=== PATIENT | male | born 1955 | race Hispanic/Latino ===

== ENCOUNTER 2019-12-20 14:25 | Emergency (ER) | payer MEDICARE ==
[2019-12-20 14:34] VITALS: BP 166/87
[2019-12-20 15:11] LABS: Bilirubin,Urine NEG (Negative); Blood,Urine NEG (Negative); Color,Urine Yellow (Yellow); Protein,Urine <15 mg/dL mg/dL (Negative); Urobilinogen,Urine < 2.0 mg/dL (<2.0)
--- NOTE | 2019-12-20 16:59 | Ultrasound Report ---
ULTRASOUND SCROTUM INDICATION: left testicle pain/swelling. COMPARISON None available. FINDINGS: RIGHT TESTICLE: 3.6 x 1.8 x 2.4 cm. Normal echogenicity. Normal color flow. No solid or cystic lesion s. RIGHT EPIDIDYMIS: Subcentimeter right epididymal cysts measure up to 6 mm. No other significant abnor mality. LEFT TESTICLE: 3.4 x 1.8 x 2.4 cm. Normal echogenicity. Normal color flow. No solid or cystic lesions . LEFT EPIDIDYMIS: No significant abnormality. HYDROCELE: Small bilateral hydroceles. VARICOCELE: None seen. ADDITIONAL FINDINGS: There is a suspected left inguinal hernia containing fat. IMPRESSION: 1. Small hydroceles. 2. Suspected left inguinal hernia containing fat. If there is continued clinical concern, a CT of the pelvis with contrast would be helpful for further evaluation. 3. Additional findings as above. Signer Name: Clay Watt MD Signed: 12/20/2019 4:55 PM Workstation Name: [id number]
--- NOTE | 2019-12-20 17:00 | Emergency Department Report ---
HPI - General Chief Complaint: Urogenital-Male Time Seen by Provider: 12/20/19 16:18 - HPI HPI: Room 3 The patient is a 64-year-old male present with a chief complaint of left groin pain. The patient states he has had intermittent pain in the left groin for 1 month. Patient states he is noticed swelling intermittently in the left inguinal region but the swelling goes down whenever he lays down and rests. Patient states his last bowel movement occurred this morning. Patient denies nausea or vomiting or fever. Patient states he is not allergic to Tylenol ED Past Medical Hx - Past Medical History Previous Medical History?: Yes Hx Hypertension: Yes Hx CVA: Yes Hx Heart Attack/AMI: Yes (1981) Hx GERD: Yes Hx Liver Disease: Yes (HEPATITIS C-cured) Hx of Cancer: Yes (prostate cancer-no treatment) Hx Arthritis: Yes Hx Psychiatric Treatment: Yes (Bipolar, Anxiety,MANIC DEPRESSION) Hx Asthma: Yes Hx COPD: Yes Additional medical history: DRUG / ALCOHOL ABUSE. L shoulder dislocation; Bones spurs; Dermatitis;. HIATAL HERNIA. HPYLORI. memory loss. Chronic pain - Surgical History Past Surgical History?: Yes Hx Cholecystectomy: Yes Additional Surgical History: L big toe removed; Hernia removed - Family History Family history: no significant - Social History Smoking Status: Current Some Day Smoker Substance Use Type: Marijuana - Medications Home Medications: Home Medications Medication Instructions Recorded Confirmed Last Taken Type cloNIDine [Catapres] 0.1 mg PO BID 03/13/15 01/16/16 03/14/15 History Dextroamphetamine/Amphetamine 10 mg PO DAILY 01/11/16 01/16/16 Unknown History [Adderall 10 mg Tablet] Dextroamphetamine/Amphetamine 30 mg PO DAILY 01/11/16 01/16/16 Unknown History [Adderall] Duloxetine HCl [Cymbalta] 60 mg PO DAILY 01/11/16 01/16/16 Unknown History Gabapentin 300 mg PO TID 01/11/16 01/16/16 Unknown History clonazePAM [KlonoPIN] 1 mg PO TID 01/11/16 01/16/16 Unknown History diphenhydrAMINE [Benadryl CAP] 25 mg PO QHS PRN #20 capsule 01/11/16 01/16/16 Unknown Rx Lactulose [Cephulac] 20 gm PO Q8H 30 Days oral.liqd 01/17/16 Unknown Rx Sulfamethoxazole/Trimethoprim 1 each PO BID #14 tablet 01/25/16 Unknown Rx [Bactrim DS TAB] HYDROcodone/APAP 10-325 [[place] 1 each PO Q6HR PRN #15 tablet 05/01/16 Unknown Rx 10-325 mg TAB] traMADoL [Ultram 50 MG tab] 50 mg PO Q6HR PRN #30 tablet 05/07/16 Unknown Rx Albuterol Sulfate [Proventil Hfa] 6.7 gm IH QID #1 hfa.aer.ad 11/02/19 Unknown Rx Prednisone [predniSONE 10 mg 10 mg PO .TAPER #1 tab.ds.pk 11/02/19 Unknown Rx (6-Day Pack, 21 Tabs)] cephALEXin [Keflex] 500 mg PO TID 21 Days cap 11/02/19 Unknown Rx HYDROcodone/APAP 5-325 [[place] 1 each PO Q6HR PRN #10 tablet 12/20/19 Unknown Rx 5/325] ED Review of Systems ROS: Stated complaint: LOW BACK/SHOULDER PAIN Other details as noted in HPI Constitutional: denies: fever Respiratory: no symptoms reported Endocrine: no symptoms reported Genitourinary: other (Left groin pain) Physical Exam - Physical Exam Vital Signs: Vital Signs 12/20/19 14:29 Temperature 98.9 F Pulse Rate 114 H Respiratory 20 Rate Blood Pressure 166/87 O2 Sat by Pulse 95 Oximetry Physical Exam: GENERAL: The patient is well-developed well-nourished male lying on stretcher not appearing to be in acute distress. [] HEENT: Normocephalic. Atraumatic. Extraocular motions are intact. Patient has moist mucous membranes. NECK: Supple. Trachea midline CHEST/LUNGS: Clear to auscultation. There is no respiratory distress noted. HEART/CARDIOVASCULAR: Regular. There is no tachycardia. There is no gallop rub or murmur. ABDOMEN: Abdomen is soft, nontender. Patient has normal bowel sounds. There is no abdominal distention. SKIN: There is no rash. There is no edema. There is no diaphoresis. NEURO: The patient is awake, alert, and oriented. The patient is cooperative. The patient has normal speech MUSCULOSKELETAL: There is no evidence of acute injury. GENITOURINARY: No inguinal swelling appreciated. No scrotal edema appreciated. No testicular swelling appreciated. Evidence of left indirect hernia during digital exam when patient coughs ED Course Vital Signs 12/20/19 14:29 Temperature 98.9 F Pulse Rate 114 H Respiratory 20 Rate Blood Pressure 166/87 O2 Sat by Pulse 95 Oximetry ED Medical Decision Making - Lab Data Laboratory Tests 12/20/19 14:59 Urine Color Yellow Urine Turbidity Clear Urine pH 6.0 Ur Specific [place] 1.012 Urine Protein <15 mg/dl Urine Glucose (UA) Neg Urine Ketones Neg Urine Blood Neg Urine Nitrite Neg Urine Bilirubin Neg Urine Urobilinogen < 2.0 Ur Leukocyte Esterase Tr Urine WBC (Auto) 3.0 Urine RBC (Auto) 4.0 - Radiology Data Radiology results: report reviewed (Testicular ultrasound), image reviewed (Testicular ultrasound) [address] [address] Ultrasound Report Signed Patient: CHRISTIANO LIRIANO MR#: [id number] : 1955 Acct:[id number] Age/Sex: 64 / M ADM Date: 12/20/19 Loc: ED Attending Dr: Ordering Physician: ROMI ORR Date of Service: 12/20/19 Procedure(s): US testicular doppler comp Accession Number(s): [id number] cc: ROMI ORR ULTRASOUND SCROTUM INDICATION: left testicle pain/swelling. COMPARISON None available. FINDINGS: RIGHT TESTICLE: 3.6 x 1.8 x 2.4 cm. Normal echogenicity. Normal color flow. No solid or cystic lesions. RIGHT EPIDIDYMIS: Subcentimeter right epididymal cysts measure up to 6 mm. No other significant abnormality. LEFT TESTICLE: 3.4 x 1.8 x 2.4 cm. Normal echogenicity. Normal color flow. No solid or cystic lesions. LEFT EPIDIDYMIS: No significant abnormality. HYDROCELE: Small bilateral hydroceles. VARICOCELE: None seen. ADDITIONAL FINDINGS: There is a suspected left inguinal hernia containing fat. IMPRESSION: 1. Small hydroceles. 2. Suspected left inguinal hernia containing fat. If there is continued clinical concern, a CT of the pelvis with contrast would be helpful for further evaluation. 3. Additional findings as above. Signer Name: Clay Watt MD Signed: 12/20/2019 4:55 PM Workstation Name: [id number] Transcribed By: [place] Dictated By: Clay Watt MD Electronically Authenticated By: Clay Watt MD Signed Date/Time: 12/20/191654 DD/ 52 TD/TT: - Differential Diagnosis Inguinal hernia, UTI Critical care attestation.: If time is entered above; I have spent that time in minutes in the direct care of this critically ill patient, excluding procedure time. ED Disposition Clinical Impression: Left inguinal hernia Disposition: TO HOME OR SELFCARE Is pt being admited?: No Does the pt Need Aspirin: No Condition: Stable Instructions: Inguinal Hernia (ED) Additional Instructions: Return to the emergency department should you develop worsening symptoms, inability to tolerate food or liquids, high fever or any other concerns Prescriptions: HYDROcodone/APAP 5-325 [[place] 5/325] 1 each PO Q6HR PRN #10 tablet PRN Reason: Pain Referrals: HUA HALE DO [Staff Physician] - 3-5 Days (Dr. Hale is a general surgeon. Please follow-up with her for further evaluation of your hernia) Time of Disposition: 17:13
== END 2019-12-20 17:20 | disposition home or self-care (01) ==
LOC: ED 14:25
DX: K40.90 Unilateral inguinal hernia, without obstruction or gangrene, not specified as recurrent (principal); I25.2 Old myocardial infarction; I10 Essential (primary) hypertension; K21.9 Gastro-esophageal reflux disease without esophagitis; M19.91 Primary osteoarthritis, unspecified site; J44.9 Chronic obstructive pulmonary disease, unspecified; F31.9 Bipolar disorder, unspecified; F17.200 Nicotine dependence, unspecified, uncomplicated; F12.10 Cannabis abuse, uncomplicated; Z86.73 Personal history of transient ischemic attack (TIA), and cerebral infarction without residual deficits; Z90.49 Acquired absence of other specified parts of digestive tract; Z98.890 Other specified postprocedural states; Z79.899 Other long term (current) drug therapy; Z88.8 Allergy status to other drugs, medicaments and biological substances
CPT/HCPCS: 81001; 93975

== ENCOUNTER 2020-02-05 11:56 | Emergency (ER) | payer MEDICARE ==
--- NOTE | 2020-02-05 12:09 | Event Note ---
ED Screening Note Date of service: 02/05/20 Time: 12:08 ED Screening Note: States left nonreducible hernia Also complains of chronic left shoulder pain This initial assessment/diagnostic orders/clinical plan/treatment(s) is/are subject to change based on patients health status, clinical progression and re- assessment by fellow clinical providers in the ED. Further treatment and workup at subsequent clinical providers discretion. Patient/guardian urged not to elope from the ED as their condition may be serious if not clinically assessed and managed. Initial orders include: Labs
[2020-02-05 12:51] LABS: Basophils % (Auto) 0.6 % (0.0-1.8); Eosinophils # (Auto) 0.4 K/mm3 (0.0-0.4); Eosinophils % (Auto) 4.9 % (0.0-4.3); Hematocrit 44.9 % (35.5-45.6); Hemoglobin 15.2 gm/dl (11.8-15.2); Lymphocytes # (Auto) 1.7 K/mm3 (1.2-5.4); Lymphocytes % (Auto) 24.1 % (13.4-35.0); Mean Corpuscular HGB Conc 34 % (32-34); Mean Corpuscular Volume 91 fl (84-94); Monocytes # (Auto) 0.4 K/mm3 (0.0-0.8); Monocytes % (Auto) 6.2 % (0.0-7.3); Platelet Count 292 K/mm3 (140-440); Red Blood Count 4.94 M/mm3 (3.65-5.03); Red Cell Distribution Width 14.4 % (13.2-15.2)
[2020-02-05 13:06] LABS: Alanine Aminotransferase 83 units/L (7-56); Albumin 3.9 g/dL (3.9-5); BUN/Creatinine Ratio 13; Blood Urea Nitrogen 12 mg/dL (9-20); Calcium 8.9 mg/dL (8.4-10.2); Hemolysis Index 7
== END 2020-02-05 16:35 | disposition left against medical advice (07) ==
LOC: ED 11:56
DX: M25.512 Pain in left shoulder (principal); Z53.21 Procedure and treatment not carried out due to patient leaving prior to being seen by health care provider
CPT/HCPCS: 36415; 80053; 85025

== ENCOUNTER 2020-02-11 12:53 | Emergency (ER) | payer MEDICARE ==
[2020-02-11 13:06] VITALS: BP 147/84
--- NOTE | 2020-02-11 13:17 | Event Note ---
ED Screening Note Date of service: 02/11/20 Time: 13:16 ED Screening Note: This initial assessment/diagnostic orders/clinical plan/treatment(s) is/are subject to change based on patients health status, clinical progression and re- assessment by fellow clinical providers in the ED. Further treatment and workup at subsequent clinical providers discretion. Patient/guardian urged not to elope from the ED as their condition may be serious if not clinically assessed and managed. Initial orders include: cbc, cmp, lipase, urinalysis
[2020-02-11 13:54] LABS: Basophils # (Auto) 0.1 K/mm3 (0.0-0.1); Basophils % (Auto) 0.8 % (0.0-1.8); Eosinophils # (Auto) 0.2 K/mm3 (0.0-0.4); Eosinophils % (Auto) 3.2 % (0.0-4.3); Hematocrit 42.8 % (35.5-45.6); Hemoglobin 14.8 gm/dl (11.8-15.2); Lymphocytes # (Auto) 2.2 K/mm3 (1.2-5.4); Lymphocytes % (Auto) 28.9 % (13.4-35.0); Mean Corpuscular HGB Conc 35 % (32-34); Mean Corpuscular Volume 89 fl (84-94); Monocytes # (Auto) 0.6 K/mm3 (0.0-0.8); Monocytes % (Auto) 7.8 % (0.0-7.3); Platelet Count 263 K/mm3 (140-440); Red Cell Distribution Width 14.5 % (13.2-15.2)
--- NOTE | 2020-02-11 14:07 | XRay Report ---
LEFT SHOULDER 3 VIEWS INDICATION: pain. COMPARISON: None. IMPRESSION: Normal bone mineralization. Moderate osteoarthritic changes are identified at the glenoh umeral joint and acromioclavicular joint. No acute fracture or bone lesion is appreciated. Chronic h ealed fracture of the lateral humeral head is suspected, correlate with history. The soft tissues are unremarkable. Signer Name: Jaydon Concepcion Jr, MD Signed: 02/11/2020 2:03 PM Workstation Name: [id number]
[2020-02-11 14:11] LABS: Alanine Aminotransferase 22 units/L (7-56); Albumin 4.2 g/dL (3.9-5); BUN/Creatinine Ratio 14; Blood Urea Nitrogen 11 mg/dL (9-20); Calcium 9.1 mg/dL (8.4-10.2); Hemolysis Index 9
[2020-02-11 14:12] LABS: Bilirubin,Urine NEG (Negative); Blood,Urine NEG (Negative); Color,Urine Yellow (Yellow); Protein,Urine <15 mg/dL mg/dL (Negative); Urobilinogen,Urine < 2.0 mg/dL (<2.0)
[2020-02-11 14:16] LABS: Bilirubin,Direct < 0.2 mg/dL (0-0.2)
--- NOTE | 2020-02-11 15:20 | Ultrasound Report ---
ULTRASOUND SCROTUM INDICATION: Hernia. COMPARISON 12/20/2019. FINDINGS: RIGHT TESTICLE: 3.6 x 1.8 x 2.9 cm. Normal echogenicity. Normal color flow. No solid or cystic lesion s. RIGHT EPIDIDYMIS: Subcentimeter right epididymal cysts measure up to 9 mm. No other significant abnor mality. LEFT TESTICLE: 3.6 x 1.7 x 2.4 cm. Normal echogenicity. Normal color flow. No solid or cystic lesions . LEFT EPIDIDYMIS: No significant abnormality. HYDROCELE: Small bilateral hydroceles. VARICOCELE: None seen. ADDITIONAL FINDINGS: There is a suspected left inguinal hernia containing fat, unchanged in appearanc e from prior study. IMPRESSION: 1. Small bilateral hydroceles. 2. Stable appearance of probable fat-containing left inguinal hernia. 3. Additional findings as above. Signer Name: Alex George MD Signed: 02/11/2020 3:15 PM Workstation Name: [id number]
--- NOTE | 2020-02-11 16:34 | Emergency Department Report ---
HPI - General Chief Complaint: Abdominal Pain Time Seen by Provider: 02/11/20 16:00 - HPI HPI: This is a 65-year-old male who presents to the emergency department with multiple complaints that all appear to be some chronic issues. The patient complains of left shoulder pain and says that he has a history of a fracture and dislocation to that left shoulder. He previously was in rehabilitation for it but says that it did not work and "it has fused back together." He says that he has trouble lifting the left arm/shoulder up above his head. Secondly, the patient has a history of chronic back pains. He previously was being seen by an orthopedist/pain specialist, but "I fired him." He denies any problems with bowel or bladder, numbness or paresthesias, or any neurological deficits. Thirdly, the patient complains of a recurrent left inguinal hernia. He denies any new injuries, fall. He has a past medical history of arthritis, asthma, COPD, CVA without residual deficits, GERD, coronary artery disease, hypertension, previous hepatitis C, bipolar disorder. ED Past Medical Hx - Past Medical History Previous Medical History?: Yes Hx Hypertension: Yes Hx CVA: Yes Hx Heart Attack/AMI: Yes (1981) Hx GERD: Yes Hx Liver Disease: Yes (HEPATITIS C-cured) Hx Arthritis: Yes Hx Psychiatric Treatment: Yes (Bipolar, Anxiety,MANIC DEPRESSION) Hx Asthma: Yes Hx COPD: Yes Additional medical history: DRUG / ALCOHOL ABUSE. L shoulder dislocation; Bones spurs; Dermatitis;. HIATAL HERNIA. HPYLORI. memory loss. Chronic pain - Surgical History Past Surgical History?: Yes Hx Cholecystectomy: Yes Additional Surgical History: L big toe removed; Hernia removed - Social History Smoking Status: Current Every Day Smoker Substance Use Type: None - Medications Home Medications: Home Medications Medication Instructions Recorded Confirmed Last Taken Type cloNIDine [Catapres] 0.1 mg PO BID 03/13/15 01/16/16 03/14/15 History Dextroamphetamine/Amphetamine 10 mg PO DAILY 01/11/16 01/16/16 Unknown History [Adderall 10 mg Tablet] Dextroamphetamine/Amphetamine 30 mg PO DAILY 01/11/16 01/16/16 Unknown History [Adderall] Duloxetine HCl [Cymbalta] 60 mg PO DAILY 01/11/16 01/16/16 Unknown History Gabapentin 300 mg PO TID 01/11/16 01/16/16 Unknown History clonazePAM [KlonoPIN] 1 mg PO TID 01/11/16 01/16/16 Unknown History diphenhydrAMINE [Benadryl CAP] 25 mg PO QHS PRN #20 capsule 01/11/16 01/16/16 Unknown Rx Lactulose [Cephulac] 20 gm PO Q8H 30 Days oral.liqd 01/17/16 Unknown Rx Sulfamethoxazole/Trimethoprim 1 each PO BID #14 tablet 01/25/16 Unknown Rx [Bactrim DS TAB] traMADoL [Ultram 50 MG tab] 50 mg PO Q6HR PRN #30 tablet 05/07/16 Unknown Rx Albuterol Sulfate [Proventil Hfa] 6.7 gm IH QID #1 hfa.aer.ad 11/02/19 Unknown Rx Prednisone [predniSONE 10 mg 10 mg PO .TAPER #1 tab.ds.pk 11/02/19 Unknown Rx (6-Day Pack, 21 Tabs)] cephALEXin [Keflex] 500 mg PO TID 21 Days cap 11/02/19 Unknown Rx HYDROcodone/APAP 5-325 [[place] 1 each PO Q6HR PRN #10 tablet 12/20/19 Unknown Rx 5/325] HYDROcodone/APAP 10-325 [[place] 1 each PO Q6HR PRN #12 tablet 02/11/20 Unknown Rx 10-325 mg TAB] ED Review of Systems ROS: Stated complaint: LT SHOULDER PAINS Other details as noted in HPI Comment: All other systems reviewed and negative Constitutional: denies: chills, fever Eyes: denies: eye pain, vision change ENT: denies: ear pain, throat pain Respiratory: denies: cough, shortness of breath Cardiovascular: denies: chest pain, palpitations Gastrointestinal: denies: abdominal pain, vomiting Genitourinary: denies: dysuria, discharge Musculoskeletal: back pain (chronic), arthralgia (chronic left shoulder). denies: joint swelling Skin: denies: rash, lesions Neurological: denies: numbness, paresthesias Physical Exam - Physical Exam Vital Signs: Vital Signs 02/11/20 12:55 Temperature 97.5 F L Pulse Rate 97 H Respiratory 15 Rate Blood Pressure 147/84 O2 Sat by Pulse 96 Oximetry Physical Exam: GENERAL: The patient is well-developed well-nourished. HENT: Normocephalic. Atraumatic. Patient has moist mucous membranes. EYES: Extraocular motions are intact. NECK: Supple. Trachea is midline. Full range of motion. CHEST/LUNGS: Clear to auscultation. There is no respiratory distress noted. HEART/CARDIOVASCULAR: Regular. There is no tachycardia. There is no murmur. ABDOMEN: Abdomen is soft, nontender. Patient has normal bowel sounds. There is no abdominal distention. SKIN: Skin is warm and dry. NEURO: The patient is awake, alert, and oriented. The patient is cooperative. The patient has no focal neurologic deficits. Normal speech. MUSCULOSKELETAL: There is some tenderness to palpation to the left shoulder but no obvious deformity other than some restriction to full extension and abduction of the affected left upper extremity. Radial pulse +2/4 and capillary refill less than 2 seconds to the left upper extremity. BACK: There is no midline thoracic or lumbar tenderness to palpation. There is reproducible bilateral paraspinal tenderness to palpation to the lower thoracic and lumbar back. : There is a reducible left inguinal hernia. ED Course Vital Signs 02/11/20 12:55 Temperature 97.5 F L Pulse Rate 97 H Respiratory 15 Rate Blood Pressure 147/84 O2 Sat by Pulse 96 Oximetry ED Medical Decision Making - Lab Data Result diagrams: 02/11/20 13:15 02/11/20 13:15 - Radiology Data Radiology results: report reviewed ULTRASOUND SCROTUM INDICATION: Hernia. COMPARISON 12/20/2019. FINDINGS: RIGHT TESTICLE: 3.6 x 1.8 x 2.9 cm. Normal echogenicity. Normal color flow. No solid or cystic lesions. RIGHT EPIDIDYMIS: Subcentimeter right epididymal cysts measure up to 9 mm. No other significant abnormality. LEFT TESTICLE: 3.6 x 1.7 x 2.4 cm. Normal echogenicity. Normal color flow. No solid or cystic lesions. LEFT EPIDIDYMIS: No significant abnormality. HYDROCELE: Small bilateral hydroceles. VARICOCELE: None seen. ADDITIONAL FINDINGS: There is a suspected left inguinal hernia containing fat, unchanged in appearance from prior study. IMPRESSION: 1. Small bilateral hydroceles. 2. Stable appearance of probable fat-containing left inguinal hernia. 3. Additional findings as above. LEFT SHOULDER 3 VIEWS INDICATION: pain. COMPARISON: None. IMPRESSION: Normal bone mineralization. Moderate osteoarthritic changes are identified at the glenohumeral joint and acromioclavicular joint. No acute fracture or bone lesion is appreciated. Chronic healed fracture of the lateral humeral head is suspected, correlate with history. The soft tissues are unremarkable. - Medical Decision Making Regarding the patient's shoulder pain, an x-ray was done that does not show any fracture, dislocation, or any acute process. The patient himself says that this is a chronic pain. Given the restriction to full extension and abduction, the patient could have a rotator cuff injury but the patient says "it has fused." He is neurovascularly intact with good radial pulses and distal capillary refill. An x-ray was done that shows an old healed fracture of the humeral head but otherwise no acute processes. Regarding the patient's back pain, the patient once again says that this is a chronic issue. He has not had any fall or injury. There is no midline tenderness to palpation, and there is reproducible bilateral paraspinal tenderness to palpation. The patient is seen ambulatory throughout the emergency department. He denies any problems with bowel or bladder, numbness or paresthesias, or any neurological deficits. For all these reasons I did not feel that imaging of the thoracic or lumbar spine was necessary at this time. The patient has a reducible left inguinal hernia. An ultrasound was done through triage that shows small bilateral hydrocele and the hernia that is most likely containing only fat. The patient was given a very small amount of pain medication for what appears to be his chronic issues. However, the patient understands that he must find a pain management physician very soon. He has been given outpatient referrals for orthopedist and general surgery. He will return to the emergency department with any worsening of his symptoms or with any acute distress. Critical Care Time: No Critical care attestation.: If time is entered above; I have spent that time in minutes in the direct care of this critically ill patient, excluding procedure time. ED Disposition Clinical Impression: Bilateral hydrocele Chronic back pain Qualifiers: Back pain location: back pain in unspecified location Back pain laterality: bilateral Qualified Code(s): M54.9 - Dorsalgia, unspecified; G89.29 - Other chronic pain Left shoulder pain Qualifiers: Chronicity: chronic Qualified Code(s): M25.512 - Pain in left shoulder; G89.29 - Other chronic pain Inguinal hernia Qualifiers: Obstruction and gangrene presence: without obstruction or gangrene Laterality: unilateral Recurrence: recurrent Qualified Code(s): K40.91 - Unilateral inguinal hernia, without obstruction or gangrene, recurrent Disposition: TO HOME OR SELFCARE Is pt being admited?: No Condition: Stable Instructions: Shoulder Pain, Hernia, Adult, Musculoskeletal Pain, Chronic Back Pain Additional Instructions: Please follow-up with your primary care physician in the next few days. 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 I am giving you a referral for a local general surgeon, Dr. Hale, to follow-up regarding your inguinal hernia. Please return to the closest emergency department with any increased pain, inability to reduce the hernia (push it back in), abdominal distention, severe nausea with vomiting. I am giving you a referral for a local orthopedic group, [facility], to follow-up regarding your shoulder and back pains. You have been prescribed a medication that is sedating and therefore should not be taken prior to driving, working, and responsible for children and in no way should be mixed with alcohol of any quantity. Return to the emergency department with any worsening of your symptoms, new or concerning symptoms not addressed during this current emergency department visit, or with any acute distress. Prescriptions: HYDROcodone/APAP 10-325 [[place] 10-325 mg TAB] 1 each PO Q6HR PRN #12 tablet PRN Reason: Pain Referrals: [facility]QU[facility] [Other] - 3-5 Days HUA HALE DO [Staff Physician] - 3-5 Days [facility] [Provider Group] - 3-5 Days Time of Disposition: 16:37
== END 2020-02-11 16:41 | disposition home or self-care (01) ==
LOC: ED 12:53
DX: K40.90 Unilateral inguinal hernia, without obstruction or gangrene, not specified as recurrent (principal); N43.3 Hydrocele, unspecified; M25.512 Pain in left shoulder; M54.6 Pain in thoracic spine; G89.29 Other chronic pain; I25.2 Old myocardial infarction; I10 Essential (primary) hypertension; K21.9 Gastro-esophageal reflux disease without esophagitis; M19.91 Primary osteoarthritis, unspecified site; F31.9 Bipolar disorder, unspecified; F41.9 Anxiety disorder, unspecified; F17.200 Nicotine dependence, unspecified, uncomplicated; J44.9 Chronic obstructive pulmonary disease, unspecified; Z90.49 Acquired absence of other specified parts of digestive tract; Z98.890 Other specified postprocedural states; Z79.899 Other long term (current) drug therapy; Z88.8 Allergy status to other drugs, medicaments and biological substances
CPT/HCPCS: 36415; 80048; 80076; 81001; 83690; 85025; 93975

== ENCOUNTER 2020-02-14 13:28 | Emergency (ER) | payer MEDICARE ==
[2020-02-14 14:11] VITALS: BP 141/74
--- NOTE | 2020-02-14 14:25 | Emergency Department Report ---
Chief Complaint: Medical Clearance Stated Complaint: LT SHOULDER PAIN/BACK PAIN Time Seen by Provider: 02/14/20 14:22 - HPI History of Present Illness: Patient is a 65-year-old male presents emergency room with complaints of chronic pain. He states that he has chronic left shoulder pain and chronic back pain. He is ambulating without difficulty. He denies any fever, nausea, vomiting, diarrhea, urinary symptoms numbness, weakness, bowel or bladder incontinence, arm swelling, arm redness. He states he has pain with movement. He was evaluated in the emergency department on 02/11/2020 and had a x-ray performed of his left shoulder which showed Normal bone mineralization. Moderate osteoarthritic changes are identified at the glenohumeral joint and acromioclavicular joint. No acute fracture or bone lesion is appreciated. Chronic healed fracture of the lateral humeral head is suspected, correlate with history. The soft tissues are unremarkable. Patient's pain was treated in the emergency department at that time and he was given a prescription for 12 tablets of norco. He states he is already out of the pain pills and that is why he presents to the emergency room. He is not seeing a primary care doctor, orthopedic, spine doctor, or pain specialist. He states that he "fired all of his doctors." He has no acute complaints at this time. Vitals are stable On exam: Non toxic appearing, no acute distress atraumatic, normocephalic normal appearance of the eyes, EOMI, no periorbital edema or ecchymosis moist mucus membranes no respiratory distress, no accessory muscle use A&O x4, no focal neuro deficit, ambulating without difficulty and briskly skin is warm, dry, intact Patient is presenting for chronic pain He has been seen in the emergency department multiple times for this complaint He was just recently seen 02/11/2020 and underwent an x-ray with no acute process at that time He has had no trauma He has no acute complaints he presents due to running out of his [place] Advised patient that he would be referred to orthopedic and pain management clinics Advised patient that we could not give him any more narcotics and that we do not treat chronic pain in the emergency department He has no acute emergent complaint at this time Patient became angered and states that "he does not want referrals and that his discharge paperwork can be shredded up" he left without his discharge paperwork Medical screening examination performed and there is no threat to life or limb at this time - Exam Vital Signs: Vital Signs 02/14/20 14:07 Temperature 98 F Pulse Rate 91 H Respiratory 18 Rate Blood Pressure 141/74 O2 Sat by Pulse 95 Oximetry MSE screening note: Focused history and physical exam performed. ED Medical Decision Making - Radiology Data Radiology results: report reviewed Ordering Physician: ROMI SHEN Date of Service: 02/11/20 Procedure(s): XR shoulder 2+V LT Accession Number(s): [id number] cc: ROMI SHEN Fluoro Time In Minutes: LEFT SHOULDER 3 VIEWS INDICATION: pain. COMPARISON: None. IMPRESSION: Normal bone mineralization. Moderate osteoarthritic changes are identified at the glenohumeral joint and acromioclavicular joint. No acute fracture or bone lesion is appreciated. Chronic healed fracture of the lateral humeral head is suspected, correlate with history. The soft tissues are unremarkable. Signer Name: Jaydon Concepcion Jr, MD Signed: 02/11/2020 2:03 PM Workstation Name: [id number] Transcribed By: TTR Dictated By: JAYDON CONCEPCION JR, MD Electronically Authenticated By: JAYDON CONCEPCION JR, MD Signed Date/Time: 02/11/20 140 DD/ 140 TD/TT: ED Disposition for MSE Clinical Impression: Chronic pain Qualifiers: Chronic pain type: other chronic pain Qualified Code(s): G89.29 - Other chronic pain Disposition: Z-07 MED SCREENING EXAM-LEFT Is pt being admited?: No Does the pt Need Aspirin: No Condition: Stable Additional Instructions: Please follow-up with orthopedic doctor. Please follow-up with a pain specialist. Return to emergency room for any new or worsening symptoms. [facility] Pain management physician in [place], [place] Address: [address], [place] [address] Dr. Tony Ronquillo Pain management physician in [place] [address] [place] [address] Husam Malin MD Pain management physician in [place], [place] Address: [address], [place] [address] [facility] Pain control clinic in the [place], [place] Address: [address] [place] [address], [place] [address] Referrals: ALISON ALEGRE MD [Staff Physician] - 2-3 Days [facility] [Provider Group] - 2-3 Days Time of Disposition: 14:22 Print Language: ESTONIAN
== END 2020-02-14 15:00 | disposition left against medical advice (07) ==
LOC: ED 13:28
DX: M79.10 Myalgia, unspecified site (principal); Z76.0 Encounter for issue of repeat prescription; Z53.21 Procedure and treatment not carried out due to patient leaving prior to being seen by health care provider

== ENCOUNTER 2020-06-29 20:05 | Emergency (ER) | payer MEDICARE ==
[2020-06-29 22:56] VITALS: BP 125/58
[2020-06-30] MEDS ORDERED: ONDANSETRON 4 MG ODT TAB PO ONE (00:11)
[2020-06-30] MEDS ORDERED: DICYCLOMINE 20 MG TAB PO ONE (00:11)
[2020-06-30] MEDS ORDERED: FAMOTIDINE 20 MG TAB PO ONE (00:11)
--- NOTE | 2020-06-30 00:44 | XRay Report ---
CHEST 1 VIEW INDICATION: cough. COMPARISON: 11/01/2019 FINDINGS: Support devices: None. Heart: Normal. Lungs/Pleura: There is persistent elevation of the left hemidiaphragm. Scarring versus atelectasis is noted in the left lung base. Right lung is clear. No pleural abnormality. IMPRESSION: 1. No acute findings. Signer Name: Feliberto Almonte MD Signed: 06/30/2020 12:39 AM Workstation Name: [id number]
[2020-06-30 01:01] LABS: Basophils % (Auto) 0.4 % (0.0-1.8); Eosinophils # (Auto) 0.3 K/mm3 (0.0-0.4); Eosinophils % (Auto) 2.9 % (0.0-4.3); Hematocrit 44.3 % (35.5-45.6); Hemoglobin 15.2 gm/dl (11.8-15.2); Lymphocytes # (Auto) 2.4 K/mm3 (1.2-5.4); Lymphocytes % (Auto) 25.3 % (13.4-35.0); Mean Corpuscular HGB Conc 34 % (32-34); Mean Corpuscular Volume 95 fl (84-94); Monocytes # (Auto) 0.9 K/mm3 (0.0-0.8); Monocytes % (Auto) 9.3 % (0.0-7.3); Platelet Count 238 K/mm3 (140-440); Red Blood Count 4.65 M/mm3 (3.65-5.03); Red Cell Distribution Width 15.2 % (13.2-15.2)
[2020-06-30 01:15] LABS: Alanine Aminotransferase 18 units/L (7-56); Albumin 4.4 g/dL (3.9-5); BUN/Creatinine Ratio 14; Blood Urea Nitrogen 13 mg/dL (9-20); Calcium 9.1 mg/dL (8.4-10.2); Hemolysis Index 5
--- NOTE | 2020-06-30 02:40 | Emergency Department Report ---
ED General Adult HPI - General Chief complaint: GI Bleed Stated complaint: BLOOD IN STOOL;SHOULDER PAIN Time Seen by Provider: 06/30/20 02:25 Source: patient Mode of arrival: Ambulatory Limitations: No Limitations - History of Present Illness Initial comments: 65-year-old male presents to ED with complaint of chronic shoulder pain and rectal bleeding. Patient reports he has had 3 episodes of rectal bleeding today. Denies any nausea, vomiting, abdominal pain. Patient seems to be somewhat all over the place, reporting on all of his medical ailments. Stating that he has a history of gout; stating that he just got out of the hospital for heart attack; stating that he currently has prostate cancer. Patient is requesting pain medication for his shoulder and colonoscopy for his rectal bleeding. -: days(s) (1) Severity scale (0 -10): 5 Quality: aching Consistency: intermittent Improves with: none Worsens with: none Associated Symptoms: denies: nausea/vomiting - Related Data Home Medications Medication Instructions Recorded Confirmed Last Taken cloNIDine [Catapres] 0.1 mg PO BID 03/13/15 01/16/16 03/14/15 Dextroamphetamine/Amphetamine 10 mg PO DAILY 01/11/16 01/16/16 Unknown [Adderall 10 mg Tablet] Dextroamphetamine/Amphetamine 30 mg PO DAILY 01/11/16 01/16/16 Unknown [Adderall] Duloxetine HCl [Cymbalta] 60 mg PO DAILY 01/11/16 01/16/16 Unknown Gabapentin 300 mg PO TID 01/11/16 01/16/16 Unknown clonazePAM [KlonoPIN] 1 mg PO TID 01/11/16 01/16/16 Unknown Previous Rx's Medication Instructions Recorded Last Taken Type diphenhydrAMINE [Benadryl CAP] 25 mg PO QHS PRN #20 capsule 01/11/16 Unknown Rx Lactulose [Cephulac] 20 gm PO Q8H 30 Days oral.liqd 01/17/16 Unknown Rx Sulfamethoxazole/Trimethoprim 1 each PO BID #14 tablet 01/25/16 Unknown Rx [Bactrim DS TAB] traMADoL [Ultram 50 MG tab] 50 mg PO Q6HR PRN #30 tablet 05/07/16 Unknown Rx Albuterol Sulfate [Proventil Hfa] 6.7 gm IH QID #1 hfa.aer.ad 11/02/19 Unknown Rx Prednisone [predniSONE 10 mg 10 mg PO .TAPER #1 tab.ds.pk 11/02/19 Unknown Rx (6-Day Pack, 21 Tabs)] cephALEXin [Keflex] 500 mg PO TID 21 Days cap 11/02/19 Unknown Rx HYDROcodone/APAP 5-325 [[place] 1 each PO Q6HR PRN #10 tablet 12/20/19 Unknown Rx 5/325] HYDROcodone/APAP 10-325 [[place] 1 each PO Q6HR PRN #12 tablet 02/11/20 Unknown Rx 10-325 mg TAB] Allergies Allergy/AdvReac Type Severity Reaction Status Date / Time ibuprofen [From Motrin] AdvReac IRRITATES Verified 12/20/19 16:39 REFLUX ED Review of Systems ROS: Stated complaint: BLOOD IN STOOL;SHOULDER PAIN Other details as noted in HPI Comment: All other systems reviewed and negative Gastrointestinal: hematochezia. denies: abdominal pain, nausea, vomiting Musculoskeletal: arthralgia ED Past Medical Hx - Past Medical History Previous Medical History?: Yes Hx Hypertension: Yes Hx CVA: Yes Hx Heart Attack/AMI: Yes (1981) Hx GERD: Yes Hx Liver Disease: Yes (HEPATITIS C-cured) Hx Arthritis: Yes Hx Psychiatric Treatment: Yes (Bipolar, Anxiety,MANIC DEPRESSION) Hx Asthma: Yes Hx COPD: Yes Additional medical history: DRUG / ALCOHOL ABUSE. L shoulder dislocation; Bones spurs; Dermatitis;. HIATAL HERNIA. HPYLORI. memory loss. Chronic pain - Surgical History Past Surgical History?: Yes Hx Cholecystectomy: Yes Additional Surgical History: L big toe removed; Hernia removed - Social History Smoking Status: Never Smoker Substance Use Type: None - Medications Home Medications: Home Medications Medication Instructions Recorded Confirmed Last Taken Type cloNIDine [Catapres] 0.1 mg PO BID 03/13/15 01/16/16 03/14/15 History Dextroamphetamine/Amphetamine 10 mg PO DAILY 01/11/16 01/16/16 Unknown History [Adderall 10 mg Tablet] Dextroamphetamine/Amphetamine 30 mg PO DAILY 01/11/16 01/16/16 Unknown History [Adderall] Duloxetine HCl [Cymbalta] 60 mg PO DAILY 01/11/16 01/16/16 Unknown History Gabapentin 300 mg PO TID 01/11/16 01/16/16 Unknown History clonazePAM [KlonoPIN] 1 mg PO TID 01/11/16 01/16/16 Unknown History diphenhydrAMINE [Benadryl CAP] 25 mg PO QHS PRN #20 capsule 01/11/16 01/16/16 Unknown Rx Lactulose [Cephulac] 20 gm PO Q8H 30 Days oral.liqd 01/17/16 Unknown Rx Sulfamethoxazole/Trimethoprim 1 each PO BID #14 tablet 01/25/16 Unknown Rx [Bactrim DS TAB] traMADoL [Ultram 50 MG tab] 50 mg PO Q6HR PRN #30 tablet 05/07/16 Unknown Rx Albuterol Sulfate [Proventil Hfa] 6.7 gm IH QID #1 hfa.aer.ad 11/02/19 Unknown Rx Prednisone [predniSONE 10 mg 10 mg PO .TAPER #1 tab.ds.pk 11/02/19 Unknown Rx (6-Day Pack, 21 Tabs)] cephALEXin [Keflex] 500 mg PO TID 21 Days cap 11/02/19 Unknown Rx HYDROcodone/APAP 5-325 [[place] 1 each PO Q6HR PRN #10 tablet 12/20/19 Unknown Rx 5/325] HYDROcodone/APAP 10-325 [[place] 1 each PO Q6HR PRN #12 tablet 02/11/20 Unknown Rx 10-325 mg TAB] ED Physical Exam - General Limitations: No Limitations General appearance: alert, in no apparent distress - Head Head exam: Present: atraumatic, normocephalic - Eye Eye exam: Present: normal appearance, EOMI - ENT ENT exam: Present: mucous membranes moist - Neck Neck exam: Present: normal inspection - Respiratory Respiratory exam: Absent: respiratory distress - Cardiovascular Cardiovascular Exam: Present: regular rate, normal rhythm - Rectal Rectal exam: Present: other (Patient refuses rectal exam) - Extremities Exam Extremities exam: Present: normal inspection - Neurological Exam Neurological exam: Present: alert, oriented X3 - Psychiatric Psychiatric exam: Present: normal affect, normal mood - Skin Skin exam: Present: warm, dry, intact, normal color ED Course Vital Signs 06/29/20 22:55 Temperature 98.1 F Pulse Rate 68 Respiratory 20 Rate Blood Pressure 125/58 [Right] O2 Sat by Pulse 95 Oximetry ED Medical Decision Making - Lab Data Result diagrams: 06/30/20 00:18 06/30/20 00:18 - Radiology Data Radiology results: report reviewed, image reviewed - Medical Decision Making Patient presents to ED with complaint of chronic shoulder pain and report of rectal bleeding. Patient requesting pain medication for her shoulder. I recommended that patient can take [id number] ibuprofen or Tylenol. Patient stated that he needs something stronger. States he has been having this pain for many years now. I explained to patient that we do not treat chronic pain in the emergency room. As far as patient's rectal bleeding is concerned, patient refuses rectal exam. He also refused vital signs by the nurse. Initial vitals are normal. Hemoglobin is normal. Outpatient follow-up with gastroenterology as advised. Return precautions given. Critical care attestation.: If time is entered above; I have spent that time in minutes in the direct care of this critically ill patient, excluding procedure time. ED Disposition Clinical Impression: Chronic shoulder pain, Rectal bleeding Disposition: - TO HOME OR SELFCARE Is pt being admited?: No Condition: Stable Instructions: Chronic Pain, Adult, Rectal Bleeding, [id number] Referrals: PRIMARY MD KEARA [Primary Care Provider] - 3-5 Days [facility] [Provider Group] - 3-5 Days ALISON ALEGRE MD [Staff Physician] - 3-5 Days Forms: Accompanied Note Time of Disposition: 02:40
== END 2020-06-30 03:15 | disposition home or self-care (01) ==
LOC: ED 20:05
DX: K62.5 Hemorrhage of anus and rectum (principal); M25.512 Pain in left shoulder; G89.29 Other chronic pain; I10 Essential (primary) hypertension; I25.2 Old myocardial infarction; K21.9 Gastro-esophageal reflux disease without esophagitis; M19.91 Primary osteoarthritis, unspecified site; J44.9 Chronic obstructive pulmonary disease, unspecified; Z86.73 Personal history of transient ischemic attack (TIA), and cerebral infarction without residual deficits; Z90.49 Acquired absence of other specified parts of digestive tract; Z98.890 Other specified postprocedural states; Z79.899 Other long term (current) drug therapy; Z88.6 Allergy status to analgesic agent
CPT/HCPCS: 36415; 71045; 80053; 83690; 85025

== ENCOUNTER 2020-08-28 16:22 | Emergency (ER) | payer MEDICARE ==
[2020-08-28 16:56] VITALS: BP 120/54
--- NOTE | 2020-08-28 18:35 | Event Note ---
ED Screening Note ED Screening Note: left inguinal hernia that worsened in the last week has not followed up general surgeon +diarrhea no vomiting still able to urinate This initial assessment/diagnostic orders/clinical plan/treatment(s) is/are subject to change based on patients health status, clinical progression and re- assessment by fellow clinical providers in the ED. Further treatment and workup at subsequent clinical providers discretion. Patient/guardian urged not to elope from the ED as their condition may be serious if not clinically assessed and managed. Initial orders include: labs, urine
[2020-08-28 18:51] LABS: Hematocrit 43.8 % (35.5-45.6); Hemoglobin 14.7 gm/dl (11.8-15.2); Mean Corpuscular HGB Conc 34 % (32-34); Mean Corpuscular Volume 92 fl (84-94); Platelet Count 188 K/mm3 (140-440); Red Blood Count 4.74 M/mm3 (3.65-5.03); Red Cell Distribution Width 14.9 % (13.2-15.2)
[2020-08-28 19:01] LABS: Basophils % (Auto) 0.7 % (0.0-1.8); Eosinophils # (Auto) 0.2 K/mm3 (0.0-0.4); Eosinophils % (Auto) 2.8 % (0.0-4.3); Lymphocytes # (Auto) 1.7 K/mm3 (1.2-5.4); Lymphocytes % (Auto) 25.7 % (13.4-35.0); Monocytes # (Auto) 0.5 K/mm3 (0.0-0.8); Monocytes % (Auto) 7.2 % (0.0-7.3)
[2020-08-28 19:14] LABS: Alanine Aminotransferase 10 units/L (7-56); BUN/Creatinine Ratio 20; Blood Urea Nitrogen 16 mg/dL (9-20); Calcium 8.8 mg/dL (8.4-10.2); Hemolysis Index 5
--- NOTE | 2020-08-28 19:16 | Emergency Department Report ---
ED General Adult HPI - General Chief complaint: Abdominal Pain Stated complaint: POSS HERNIA Time Seen by Provider: 08/28/20 18:34 Source: patient Mode of arrival: Ambulatory Limitations: No Limitations - History of Present Illness Initial comments: 65-year-old male patient with history of hepatitis C, cholecystectomy, and right inguinal hernia status post surgical repair presents to the emergency department with complaints of pain and swelling to his left inguinal area with associated diarrhea progressively worsening for the last 2 weeks. Patient states he was previously diagnosed with a left inguinal hernia by his primary care provider following an ultrasound. However, he did not follow-up with a general surgeon. The hernia was reducible until about 2 weeks ago. There was no new fall, trauma, or injury. Denies fever, chills, abdominal pain, nausea, vomiting, melena, constipation. Denies all other complaints at this time. - Related Data Home Medications Medication Instructions Recorded Confirmed Last Taken cloNIDine [Catapres] 0.1 mg PO BID 03/13/15 01/16/16 03/14/15 Dextroamphetamine/Amphetamine 10 mg PO DAILY 01/11/16 01/16/16 Unknown [Adderall 10 mg Tablet] Dextroamphetamine/Amphetamine 30 mg PO DAILY 01/11/16 01/16/16 Unknown [Adderall] Duloxetine HCl [Cymbalta] 60 mg PO DAILY 01/11/16 01/16/16 Unknown Gabapentin 300 mg PO TID 01/11/16 01/16/16 Unknown clonazePAM [KlonoPIN] 1 mg PO TID 01/11/16 01/16/16 Unknown Previous Rx's Medication Instructions Recorded Last Taken Type diphenhydrAMINE [Benadryl CAP] 25 mg PO QHS PRN #20 capsule 01/11/16 Unknown Rx Lactulose [Cephulac] 20 gm PO Q8H 30 Days oral.liqd 01/17/16 Unknown Rx Sulfamethoxazole/Trimethoprim 1 each PO BID #14 tablet 01/25/16 Unknown Rx [Bactrim DS TAB] traMADoL [Ultram 50 MG tab] 50 mg PO Q6HR PRN #30 tablet 05/07/16 Unknown Rx Albuterol Sulfate [Proventil Hfa] 6.7 gm IH QID #1 hfa.aer.ad 11/02/19 Unknown Rx Prednisone [predniSONE 10 mg 10 mg PO .TAPER #1 tab.ds.pk 11/02/19 Unknown Rx (6-Day Pack, 21 Tabs)] cephALEXin [Keflex] 500 mg PO TID 21 Days cap 11/02/19 Unknown Rx HYDROcodone/APAP 5-325 [[place] 1 each PO Q6HR PRN #10 tablet 12/20/19 Unknown Rx 5/325] HYDROcodone/APAP 10-325 [[place] 1 each PO Q6HR PRN #12 tablet 02/11/20 Unknown Rx 10-325 mg TAB] traMADoL [Ultram 50 MG tab] 50 mg PO Q6H #10 tablet 08/28/20 Unknown Rx Allergies Allergy/AdvReac Type Severity Reaction Status Date / Time ibuprofen [From Motrin] AdvReac IRRITATES Verified 08/28/20 16:50 REFLUX ED Review of Systems ROS: Stated complaint: POSS HERNIA Other details as noted in HPI Other: GENERAL: Negative for fever, chills, weight change, anorexia, fatigue. ENT: Negative for ear pain, difficulty hearing, sore throat, nasal congestion, epistaxis. CARDIOVASCULAR: Negative for chest pain, palpitations, lower extremity swelling. PULMONARY: Negative for cough, dyspnea, wheezing, orthopnea, cyanosis. GASTROINTESTINAL: Positive for diarrhea and left inguinal pain/swelling. MUSCULOSKELETAL: Negative for joint pain, joint swelling, myalgias, back pain, neck pain. NEUROLOGICAL: Negative for headache, seizure, syncope, paresthesias, weakness. INTEGUMENTARY: Negative for erythema, rash, diaphoresis, laceration, ecchymosis. HEMATOLOGICAL: Negative for hemoptysis, hematemesis, hematochezia, hematuria. PSYCHIATRIC: Negative for hallucinations, suicidal ideation, homicidal ideation, anxiety, depression. ED Past Medical Hx - Past Medical History Hx Hypertension: Yes Hx CVA: Yes Hx Heart Attack/AMI: Yes (1981) Hx GERD: Yes Hx Liver Disease: Yes (HEPATITIS C-cured) Hx Arthritis: Yes Hx Psychiatric Treatment: Yes (Bipolar, Anxiety,MANIC DEPRESSION) Hx Asthma: Yes Hx COPD: Yes Additional medical history: DRUG / ALCOHOL ABUSE. L shoulder dislocation; Bones spurs; Dermatitis;. HIATAL HERNIA. HPYLORI. memory loss. Chronic pain - Surgical History Hx Cholecystectomy: Yes Additional Surgical History: L big toe removed; Hernia removed - Social History Smoking Status: Never Smoker Substance Use Type: None - Medications Home Medications: Home Medications Medication Instructions Recorded Confirmed Last Taken Type cloNIDine [Catapres] 0.1 mg PO BID 03/13/15 01/16/16 03/14/15 History Dextroamphetamine/Amphetamine 10 mg PO DAILY 01/11/16 01/16/16 Unknown History [Adderall 10 mg Tablet] Dextroamphetamine/Amphetamine 30 mg PO DAILY 01/11/16 01/16/16 Unknown History [Adderall] Duloxetine HCl [Cymbalta] 60 mg PO DAILY 01/11/16 01/16/16 Unknown History Gabapentin 300 mg PO TID 01/11/16 01/16/16 Unknown History clonazePAM [KlonoPIN] 1 mg PO TID 01/11/16 01/16/16 Unknown History diphenhydrAMINE [Benadryl CAP] 25 mg PO QHS PRN #20 capsule 01/11/16 01/16/16 Unknown Rx Lactulose [Cephulac] 20 gm PO Q8H 30 Days oral.liqd 01/17/16 Unknown Rx Sulfamethoxazole/Trimethoprim 1 each PO BID #14 tablet 01/25/16 Unknown Rx [Bactrim DS TAB] traMADoL [Ultram 50 MG tab] 50 mg PO Q6HR PRN #30 tablet 05/07/16 Unknown Rx Albuterol Sulfate [Proventil Hfa] 6.7 gm IH QID #1 hfa.aer.ad 11/02/19 Unknown Rx Prednisone [predniSONE 10 mg 10 mg PO .TAPER #1 tab.ds.pk 11/02/19 Unknown Rx (6-Day Pack, 21 Tabs)] cephALEXin [Keflex] 500 mg PO TID 21 Days cap 11/02/19 Unknown Rx HYDROcodone/APAP 5-325 [[place] 1 each PO Q6HR PRN #10 tablet 12/20/19 Unknown Rx 5/325] HYDROcodone/APAP 10-325 [[place] 1 each PO Q6HR PRN #12 tablet 02/11/20 Unknown Rx 10-325 mg TAB] traMADoL [Ultram 50 MG tab] 50 mg PO Q6H #10 tablet 08/28/20 Unknown Rx ED Physical Exam - General Limitations: No Limitations - Other Other exam information: General: Awake and alert. No acute distress. Head: Atraumatic, normocephalic. Eyes: EOMI. Pupils are equal and round. Normal sclera and conjunctiva. ENT: Oral mucosa is moist. Normal pharyngeal exam. Neck: Supple. No lymphadenopathy. Pulmonary: No respiratory distress. Clear to auscultation bilaterally. Cardiac: Regular rate and rhythm. Pulses are palpable and equal bilaterally. No lower extremity cyanosis or edema. Skin: Warm and dry. No rashes. Abdomen: Soft, non-tender, non-protuberant. No guarding, rigidity, or rebound. Bowel sounds are normal. No organomegaly or masses noted. 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 Normal external inspection. Left inguinal hernia, non-reducible. Left testicular swelling without overlying warmth, erythema, or tenderness -- pt states swelling has been ongoing for over two months, and is unchanged today. No blood or discharge at the urethral meatus. No rashes or lesions. Back: Normal alignment. No CVA tenderness. Extremities: Symmetrical. Full range of motion intact. Neurological: Alert and oriented, appropriately interactive, no focal deficits. Psych: Cooperative. Appropriate mood and affect. Speech is evenly metered. Thoughts are logically construed. ED Course Vital Signs 08/28/20 16:55 Temperature 98.0 F Pulse Rate 48 L Respiratory 20 Rate Blood Pressure 120/54 O2 Sat by Pulse 94 Oximetry ED Medical Decision Making - Lab Data Result diagrams: 08/28/20 18:41 08/28/20 18:41 - Radiology Data [facility] [address] [place] [address] Cat Scan Report Signed Patient: CHRISTIANO LIRIANO MR#: [id number] : 1955 Acct:[id number] Age/Sex: 65 / M ADM Date: 08/28/20 Loc: ED Attending Dr: Ordering Physician: ROMI PRUITT Date of Service: 08/28/20 Procedure(s): CT abdomen pelvis w con Accession Number(s): [id number] cc: ROMI PRUITT CT OF THE ABDOMEN AND PELVIS WITH INTRAVENOUS CONTRAST INDICATION / CLINICAL INFORMATION: Left inguinal hernia; strangulated/incarcerated. TECHNIQUE: The patient received 100 cc Omnipaque [address] scans at this location are performed using CT dose reduction for ALARA by means of automated exposure control. COMPARISON: None available. FINDINGS: ABDOMEN: There are small bilateral pleural effusions, larger on the left. There is also bibasilar compressive atelectasis, greater on the left. There is mild diffuse fatty infiltration of the liver without focal lesion. The gallbladder is surgically absent. The bile ducts, pancreas, spleen, adrenal glands and left kidney are normal. The right kidney is slightly small and scarred in appearance. The bowel is unremarkable. No adenopathy is present. There are moderate atherosclerotic calcifications involving the aorta without aneurysm. PELVIS: There is a moderate sized left inguinal hernia which contains a portion of the sigmoid colon. I see no evidence of bowel obstruction or wall thickening. No inflammatory change is present. The prostate gland is mildly enlarged. The distal ureters and urinary bladder are normal. A normal appendix is present and there is no evidence of diverticulitis. No acute osseous abnormality is seen. IMPRESSION: 1. Moderate sized left inguinal hernia containing a portion of the sigmoid colon. No acute complication. 2. Bibasilar pleuroparenchymal disease, greater on the left than the right, is likely secondary to combination of pleural effusions and compressive atelectasis. Signer Name: Tal Cruz MD Signed: 08/28/2020 8:43 PM Workstation Name: [id number] Transcribed By: RT Dictated By: Tal Cruz MD Electronically Authenticated By: Tal Cruz MD Signed Date/Time: 08/28/202042 DD/ 37 TD/TT: - Medical Decision Making Differential diagnosis including but not limited to: incarcerated hernia, strangulated hernia, bowel obstruction, bowel perforation, mesenteric ischemia, intestinal volvulus, diverticulitis On reevaluation, patient remains stable. Repeat abdominal exam is benign. No vomiting in the emergency department. Labs are unremarkable. Urinalysis without evidence of infection. CT of the abdomen/pelvis shows moderate sized left inguinal hernia containing a portion of the sigmoid colon without complications or inflammatory changes. Incidentally, bibasilar pleuroparenchymal disease and atelectasis also noted. Patient is not hypoxic, no respiratory distress, no signs/symptoms to suggest acute respiratory infection. He has already been prescribed an inhaler by his primary care provider. There is no clinical indication for further diagnostic work-up and/or emergent surgical consultation or hernia reduction at this time. Patient will be discharged home with a short course of Tramadol (allergic to NSAID's) and referred to both general surgery as well as pulmonology for close outpatient follow-up. Patient has been provided with a copy of his imaging results to take with him to his follow-up appointments. Patient expressed understanding and is agreeable to plan of care. Strict return precautions provided. [facility] controlled substance database reviewed; patient has not been prescribed narcotics in over three months. He will be prescribed #10 Tramadol for pain relief through the weekend. Patient understands arrangements for refills and/or additional pain medication prescriptions must be made outside of the emergency department. Repeat exam is unremarkable and benign. History, exam, diagnostic testing, and current condition do not suggest worrisome pathology to warrant further testing, continued ED treatment, admission, or surgical evaluation at this point. Given the low probability of a significant medical illness, it would be more likely to result in harm than benefit to perform further testing at this stage. Discussed findings, presumptive diagnosis, need for follow-up and specific signs/symptoms that should prompt immediate return to the emergency department. Instructions were explained in detail to the patient in addition to giving written discharge information. Patient expressed understanding and was given the opportunity to ask questions, all of which were satisfactorily answered prior to discharge home. Critical care attestation.: If time is entered above; I have spent that time in minutes in the direct care of this critically ill patient, excluding procedure time. ED Disposition Clinical Impression: Left inguinal hernia, Chronic lung disease Disposition: DC-01 TO HOME OR SELFCARE Is pt being admited?: No Does the pt Need Aspirin: No Condition: Stable Instructions: Hernia, Adult, [id number] Additional Instructions: Take Tylenol every 4 hours as needed for pain. Take Tramadol with food as directed. Do not drive while taking this medication. Do not operate machinery while taking this medication. You have been prescribed a short-course of this medication for pain relief through the weekend. Refills of this medication (as well as any other pain medication) prescriptions must be obtained through an outside provider, such as your primary care pr ovider, face painter, or your general surgeon. Follow-up with Dr. Hale, general surgery, this week. Call tomorrow to schedule an appointment. Follow-up with Dr. Tipton, commercial mortgage broker, this week. Call tomorrow to schedule an appointment. See referral information below. Bring a copy of today's results with you to your follow-up appointments. Return to the emergency department immediately for new or worsening symptoms. Specifically, return to the emergency department immediately for fever, vomiting, worsening pain, black stools, increased difficulty breathing, or any other concerns. Prescriptions: traMADoL [Ultram 50 MG tab] 50 mg PO Q6H #10 tablet Referrals: PATITO GALARZA MD [Primary Care Provider] - 3-5 Days HUA HALE DO [Staff Physician] - 3-5 Days THIEN KIRBY MD [Referring] - 3-5 Days TENISHA TIPTON MD [Staff Physician] - 3-5 Days Time of Disposition: 21:06
[2020-08-28] MEDS ORDERED: ONDANSETRON 4 MG/2 ML INJ IV ONE (19:40)
[2020-08-28] MEDS ORDERED: MORPHINE 4 MG/1 ML INJ IV ONE (19:40)
[2020-08-28] MEDS ORDERED: ONDANSETRON 4 MG/2 ML INJ ONE (19:41)
[2020-08-28] MEDS ORDERED: MORPHINE 4 MG/1 ML INJ ONE (19:41)
[2020-08-28 20:18] LABS: Bilirubin,Urine NEG (Negative); Blood,Urine NEG (Negative); Color,Urine Amber (Yellow); Mucus,Urine 2+ /HPF
--- NOTE | 2020-08-28 20:47 | Cat Scan Report ---
CT OF THE ABDOMEN AND PELVIS WITH INTRAVENOUS CONTRAST INDICATION / CLINICAL INFORMATION: Left inguinal hernia; strangulated/incarcerated. TECHNIQUE: The patient received 100 cc Omnipaque [address] scans at this location are performed using CT dose reduction for ALARA by means of automated exposure control. COMPARISON: None available. FINDINGS: ABDOMEN: There are small bilateral pleural effusions, larger on the left. There is also bibasilar com pressive atelectasis, greater on the left. There is mild diffuse fatty infiltration of the liver with out focal lesion. The gallbladder is surgically absent. The bile ducts, pancreas, spleen, adrenal gla nds and left kidney are normal. The right kidney is slightly small and scarred in appearance. The bow el is unremarkable. No adenopathy is present. There are moderate atherosclerotic calcifications invol ving the aorta without aneurysm. PELVIS: There is a moderate sized left inguinal hernia which contains a portion of the sigmoid colon. I see no evidence of bowel obstruction or wall thickening. No inflammatory change is present. The prostate gland is mildly enlarged. The distal ureters and urinary bladder are normal. A normal ap pendix is present and there is no evidence of diverticulitis. No acute osseous abnormality is seen. IMPRESSION: 1. Moderate sized left inguinal hernia containing a portion of the sigmoid colon. No acute complicati on. 2. Bibasilar pleuroparenchymal disease, greater on the left than the right, is likely secondary to co mbination of pleural effusions and compressive atelectasis. Signer Name: Tal Cruz MD Signed: 08/28/2020 8:43 PM Workstation Name: [id number]
[2020-08-28] MEDS ORDERED: MORPHINE 2 MG/1 ML INJ IV ONE (20:56)
== END 2020-08-28 21:30 | disposition home or self-care (01) ==
LOC: ED 16:22
DX: K40.90 Unilateral inguinal hernia, without obstruction or gangrene, not specified as recurrent (principal); J98.4 Other disorders of lung; I25.2 Old myocardial infarction; I10 Essential (primary) hypertension; K21.9 Gastro-esophageal reflux disease without esophagitis; M19.90 Unspecified osteoarthritis, unspecified site; F31.9 Bipolar disorder, unspecified; F41.9 Anxiety disorder, unspecified; J44.9 Chronic obstructive pulmonary disease, unspecified; Z79.899 Other long term (current) drug therapy; Z90.49 Acquired absence of other specified parts of digestive tract; Z88.8 Allergy status to other drugs, medicaments and biological substances; Z86.73 Personal history of transient ischemic attack (TIA), and cerebral infarction without residual deficits; Z98.890 Other specified postprocedural states
CPT/HCPCS: 36415; 74177; 80053; 81001; 83690; 85025; 96374; 96375; 96376; 99284; J2270; J2405; Q9967

== ENCOUNTER 2020-09-12 10:14 | Emergency (ER) | payer MEDICARE ==
--- NOTE | 2020-09-12 11:37 | Emergency Department Report ---
ED Dizziness HPI - General Chief Complaint: Dizziness Stated Complaint: HYPOTENSIVE Time Seen by Provider: 09/12/20 11:22 Source: patient Mode of arrival: Ambulatory Limitations: No Limitations - History of Present Illness Initial Comments: Chief complaint: "My blood pressure keeps dropping. I take clonidine 0.2 mg every day." HPI: This is a 64-year-old male with history of hypertension, prediabetes, hepatitis C in remission, left inguinal hernia, CVA, COPD, coronary disease, bipolar disorder, schizophrenia who presents from PCPs office with bradycardia and hypotension. Patient took clonidine 0.2 mg this morning. He has mild dizziness with position changes. He is ambulatory. No syncope. He denies chest pain abdominal pain. He has had chronic diarrhea for several years. Patient has had intermittent abdominal pain for several years. This is unchanged. Patient has noticed hypotension and dizziness for several months. MD Complaint: dizziness, lightheadedness -: Gradual, month(s) (Several months) Timing: gradual onset Description: lightheadedness History of Same: Yes Severity: mild Improves With: nothing Worsens With: nothing Associated Symptoms: other (Chronic abdominal pain chronic wrist pain chronic discomfort due to hernia pain chronic diarrhea) - Related Data Home Medications Medication Instructions Recorded Confirmed Last Taken cloNIDine [Catapres] 0.1 mg PO BID 03/13/15 01/16/16 03/14/15 Dextroamphetamine/Amphetamine 10 mg PO DAILY 01/11/16 01/16/16 Unknown [Adderall 10 mg Tablet] Dextroamphetamine/Amphetamine 30 mg PO DAILY 01/11/16 01/16/16 Unknown [Adderall] Duloxetine HCl [Cymbalta] 60 mg PO DAILY 01/11/16 01/16/16 Unknown Gabapentin 300 mg PO TID 01/11/16 01/16/16 Unknown clonazePAM [KlonoPIN] 1 mg PO TID 01/11/16 01/16/16 Unknown Previous Rx's Medication Instructions Recorded Last Taken Type diphenhydrAMINE [Benadryl CAP] 25 mg PO QHS PRN #20 capsule 01/11/16 Unknown Rx Lactulose [Cephulac] 20 gm PO Q8H 30 Days oral.liqd 01/17/16 Unknown Rx Sulfamethoxazole/Trimethoprim 1 each PO BID #14 tablet 01/25/16 Unknown Rx [Bactrim DS TAB] traMADoL [Ultram 50 MG tab] 50 mg PO Q6HR PRN #30 tablet 05/07/16 Unknown Rx Albuterol Sulfate [Proventil Hfa] 6.7 gm IH QID #1 hfa.aer.ad 11/02/19 Unknown Rx Prednisone [predniSONE 10 mg 10 mg PO .TAPER #1 tab.ds.pk 11/02/19 Unknown Rx (6-Day Pack, 21 Tabs)] cephALEXin [Keflex] 500 mg PO TID 21 Days cap 11/02/19 Unknown Rx HYDROcodone/APAP 5-325 [[place] 1 each PO Q6HR PRN #10 tablet 12/20/19 Unknown Rx 5/325] HYDROcodone/APAP 10-325 [[place] 1 each PO Q6HR PRN #12 tablet 02/11/20 Unknown Rx 10-325 mg TAB] traMADoL [Ultram 50 MG tab] 50 mg PO Q6H #10 tablet 08/28/20 Unknown Rx Allergies Allergy/AdvReac Type Severity Reaction Status Date / Time ibuprofen [From Motrin] AdvReac IRRITATES Verified 08/28/20 16:50 REFLUX ED Review of Systems ROS: Stated complaint: HYPOTENSIVE Other details as noted in HPI Comment: All other systems reviewed and negative Respiratory: denies: cough, shortness of breath Cardiovascular: denies: chest pain Gastrointestinal: abdominal pain (Chronic abdominal pain), diarrhea (Chronic diarrhea) ED Past Medical Hx - Past Medical History Previous Medical History?: Yes Hx Hypertension: Yes Hx CVA: Yes Hx Heart Attack/AMI: Yes (1981) Hx GERD: Yes Hx Liver Disease: Yes (HEPATITIS C-cured) Hx Arthritis: Yes Hx Psychiatric Treatment: Yes (Bipolar, Anxiety,MANIC DEPRESSION) Hx Asthma: Yes Hx COPD: Yes Additional medical history: DRUG / ALCOHOL ABUSE. L shoulder dislocation; Bones spurs; Dermatitis;. HIATAL HERNIA. HPYLORI. memory loss. Chronic pain - Surgical History Past Surgical History?: Yes Hx Cholecystectomy: Yes Additional Surgical History: L big toe removed; Hernia removed - Social History Smoking Status: Never Smoker Substance Use Type: None - Medications Home Medications: Home Medications Medication Instructions Recorded Confirmed Last Taken Type cloNIDine [Catapres] 0.1 mg PO BID 03/13/15 01/16/16 03/14/15 History Dextroamphetamine/Amphetamine 10 mg PO DAILY 01/11/16 01/16/16 Unknown History [Adderall 10 mg Tablet] Dextroamphetamine/Amphetamine 30 mg PO DAILY 01/11/16 01/16/16 Unknown History [Adderall] Duloxetine HCl [Cymbalta] 60 mg PO DAILY 01/11/16 01/16/16 Unknown History Gabapentin 300 mg PO TID 01/11/16 01/16/16 Unknown History clonazePAM [KlonoPIN] 1 mg PO TID 01/11/16 01/16/16 Unknown History diphenhydrAMINE [Benadryl CAP] 25 mg PO QHS PRN #20 capsule 01/11/16 01/16/16 Unknown Rx Lactulose [Cephulac] 20 gm PO Q8H 30 Days oral.liqd 01/17/16 Unknown Rx Sulfamethoxazole/Trimethoprim 1 each PO BID #14 tablet 01/25/16 Unknown Rx [Bactrim DS TAB] traMADoL [Ultram 50 MG tab] 50 mg PO Q6HR PRN #30 tablet 05/07/16 Unknown Rx Albuterol Sulfate [Proventil Hfa] 6.7 gm IH QID #1 hfa.aer.ad 11/02/19 Unknown Rx Prednisone [predniSONE 10 mg 10 mg PO .TAPER #1 tab.ds.pk 11/02/19 Unknown Rx (6-Day Pack, 21 Tabs)] cephALEXin [Keflex] 500 mg PO TID 21 Days cap 11/02/19 Unknown Rx HYDROcodone/APAP 5-325 [[place] 1 each PO Q6HR PRN #10 tablet 12/20/19 Unknown Rx 5/325] HYDROcodone/APAP 10-325 [[place] 1 each PO Q6HR PRN #12 tablet 02/11/20 Unknown Rx 10-325 mg TAB] traMADoL [Ultram 50 MG tab] 50 mg PO Q6H #10 tablet 08/28/20 Unknown Rx ED Physical Exam - General Limitations: No Limitations General appearance: alert, in no apparent distress, other (Appears well, nontox ic, appears comfortable) - Head Head exam: Present: atraumatic, normocephalic - Eye Eye exam: Present: normal appearance - ENT ENT exam: Present: mucous membranes moist - Neck Neck exam: Present: normal inspection, full ROM - Respiratory Respiratory exam: Present: normal lung sounds bilaterally. Absent: respiratory distress, wheezes, rales, rhonchi - Cardiovascular Cardiovascular Exam: Present: regular rate, normal rhythm, normal heart sounds. Absent: systolic murmur, diastolic murmur, rubs, gallop - GI/Abdominal GI/Abdominal exam: Present: soft, normal bowel sounds. Absent: distended, tenderness, guarding, rebound - Rectal Rectal exam: Present: deferred - Extremities Exam Extremities exam: Present: normal inspection - Neurological Exam Neurological exam: Present: alert, oriented X3 - Psychiatric Psychiatric exam: Present: normal mood, flat affect - Skin Skin exam: Present: warm, dry, intact, normal color. Absent: rash ED Course Vital Signs 09/12/20 09/12/20 09/12/20 10:30 12:15 12:31 Temperature 98.4 F Pulse Rate 52 L 46 L 49 L Respiratory 17 22 25 H Rate Blood Pressure 113/56 113/56 Blood Pressure 88/40 [Right] O2 Sat by Pulse 97 94 94 Oximetry ED Medical Decision Making - EKG Data -: EKG Interpreted by Me EKG shows normal: sinus rhythm, axis, intervals, QRS complexes, ST-T waves Rate: tachycardia - EKG Data Interpretation: normal EKG (With exception of bradycardia) 09/12/20 11:41 EKG obtained 1037 EKG interpreted by me Sinus bradycardia rate 50 bpm normal axis normal intervals no ST-T sign ischemia - Medical Decision Making 1. Hypotension due to medication: Patient was prescribed clonidine 0.1 mg p.o. twice daily in the past. He is now taking 0.3 mg dose. I have reviewed vital signs from ED encounters over the last year. He has been normotensive. I have asked patient to stop taking clonidine. I do not feel that this is appropriate medication at this time. 2. Lightheadedness due to hypotension. 3. Patient has well-documented chronic pain in several locations, patient does not have acute medical condition otherwise Without without intervention blood pressure 113/50. Patient seems without difficulty. Patient will hold clonidine until he is reevaluated by his PCP Critical care attestation.: If time is entered above; I have spent that time in minutes in the direct care of this critically ill patient, excluding procedure time. ED Disposition Clinical Impression: Hypotension, Adverse effects of medication Disposition: DC-01 TO HOME OR SELFCARE Is pt being admited?: No Does the pt Need Aspirin: No Condition: Stable Additional Instructions: Please stop taking clonidine until you see your primary care physician. Referrals: PATITO GALARZA MD [Primary Care Provider] - 3-5 Days
--- NOTE | 2020-09-12 11:40 | Emergency Department Report ---
ED Dizziness HPI - General Chief Complaint: Dizziness Stated Complaint: HYPOTENSIVE Time Seen by Provider: 09/12/20 11:22 Source: patient Mode of arrival: Ambulatory Limitations: No Limitations - History of Present Illness Severity: mild Improves With: nothing Worsens With: nothing Associated Symptoms: other (Chronic abdominal pain chronic wrist pain chronic discomfort due to hernia pain chronic diarrhea) - Related Data Home Medications Medication Instructions Recorded Confirmed Last Taken cloNIDine [Catapres] 0.1 mg PO BID 03/13/15 01/16/16 03/14/15 Dextroamphetamine/Amphetamine 10 mg PO DAILY 01/11/16 01/16/16 Unknown [Adderall 10 mg Tablet] Dextroamphetamine/Amphetamine 30 mg PO DAILY 01/11/16 01/16/16 Unknown [Adderall] Duloxetine HCl [Cymbalta] 60 mg PO DAILY 01/11/16 01/16/16 Unknown Gabapentin 300 mg PO TID 01/11/16 01/16/16 Unknown clonazePAM [KlonoPIN] 1 mg PO TID 01/11/16 01/16/16 Unknown Previous Rx's Medication Instructions Recorded Last Taken Type diphenhydrAMINE [Benadryl CAP] 25 mg PO QHS PRN #20 capsule 01/11/16 Unknown Rx Lactulose [Cephulac] 20 gm PO Q8H 30 Days oral.liqd 01/17/16 Unknown Rx Sulfamethoxazole/Trimethoprim 1 each PO BID #14 tablet 01/25/16 Unknown Rx [Bactrim DS TAB] traMADoL [Ultram 50 MG tab] 50 mg PO Q6HR PRN #30 tablet 05/07/16 Unknown Rx Albuterol Sulfate [Proventil Hfa] 6.7 gm IH QID #1 hfa.aer.ad 11/02/19 Unknown Rx Prednisone [predniSONE 10 mg 10 mg PO .TAPER #1 tab.ds.pk 11/02/19 Unknown Rx (6-Day Pack, 21 Tabs)] cephALEXin [Keflex] 500 mg PO TID 21 Days cap 11/02/19 Unknown Rx HYDROcodone/APAP 5-325 [[place] 1 each PO Q6HR PRN #10 tablet 12/20/19 Unknown Rx 5/325] HYDROcodone/APAP 10-325 [[place] 1 each PO Q6HR PRN #12 tablet 02/11/20 Unknown Rx 10-325 mg TAB] traMADoL [Ultram 50 MG tab] 50 mg PO Q6H #10 tablet 08/28/20 Unknown Rx Allergies Allergy/AdvReac Type Severity Reaction Status Date / Time ibuprofen [From Motrin] AdvReac IRRITATES Verified 08/28/20 16:50 REFLUX ED Review of Systems ROS: Stated complaint: HYPOTENSIVE Other details as noted in HPI Respiratory: denies: cough, shortness of breath Cardiovascular: denies: chest pain Gastrointestinal: abdominal pain (Chronic abdominal pain), diarrhea (Chronic d iarrhea) ED Past Medical Hx - Past Medical History Previous Medical History?: Yes Hx Hypertension: Yes Hx CVA: Yes Hx Heart Attack/AMI: Yes (1981) Hx GERD: Yes Hx Liver Disease: Yes (HEPATITIS C-cured) Hx Arthritis: Yes Hx Psychiatric Treatment: Yes (Bipolar, Anxiety,MANIC DEPRESSION) Hx Asthma: Yes Hx COPD: Yes Additional medical history: DRUG / ALCOHOL ABUSE. L shoulder dislocation; Bones spurs; Dermatitis;. HIATAL HERNIA. HPYLORI. memory loss. Chronic pain - Surgical History Past Surgical History?: Yes Hx Cholecystectomy: Yes Additional Surgical History: L big toe removed; Hernia removed - Social History Smoking Status: Never Smoker Substance Use Type: None - Medications Home Medications: Home Medications Medication Instructions Recorded Confirmed Last Taken Type cloNIDine [Catapres] 0.1 mg PO BID 03/13/15 01/16/16 03/14/15 History Dextroamphetamine/Amphetamine 10 mg PO DAILY 01/11/16 01/16/16 Unknown History [Adderall 10 mg Tablet] Dextroamphetamine/Amphetamine 30 mg PO DAILY 01/11/16 01/16/16 Unknown History [Adderall] Duloxetine HCl [Cymbalta] 60 mg PO DAILY 01/11/16 01/16/16 Unknown History Gabapentin 300 mg PO TID 01/11/16 01/16/16 Unknown History clonazePAM [KlonoPIN] 1 mg PO TID 01/11/16 01/16/16 Unknown History diphenhydrAMINE [Benadryl CAP] 25 mg PO QHS PRN #20 capsule 01/11/16 01/16/16 Unknown Rx Lactulose [Cephulac] 20 gm PO Q8H 30 Days oral.liqd 01/17/16 Unknown Rx Sulfamethoxazole/Trimethoprim 1 each PO BID #14 tablet 01/25/16 Unknown Rx [Bactrim DS TAB] traMADoL [Ultram 50 MG tab] 50 mg PO Q6HR PRN #30 tablet 05/07/16 Unknown Rx Albuterol Sulfate [Proventil Hfa] 6.7 gm IH QID #1 hfa.aer.ad 11/02/19 Unknown Rx Prednisone [predniSONE 10 mg 10 mg PO .TAPER #1 tab.ds.pk 11/02/19 Unknown Rx (6-Day Pack, 21 Tabs)] cephALEXin [Keflex] 500 mg PO TID 21 Days cap 11/02/19 Unknown Rx HYDROcodone/APAP 5-325 [[place] 1 each PO Q6HR PRN #10 tablet 12/20/19 Unknown Rx 5/325] HYDROcodone/APAP 10-325 [[place] 1 each PO Q6HR PRN #12 tablet 02/11/20 Unknown Rx 10-325 mg TAB] traMADoL [Ultram 50 MG tab] 50 mg PO Q6H #10 tablet 08/28/20 Unknown Rx ED Physical Exam - General Limitations: No Limitations General appearance: alert, in no apparent distress, other (Appears well, nontoxic, appears comfortable) ED Course Vital Signs 09/12/20 10:30 Temperature 98.4 F Pulse Rate 52 L Respiratory 17 Rate Blood Pressure 88/40 [Right] O2 Sat by Pulse 97 Oximetry ED Medical Decision Making - Medical Decision Making 1. Hypotension due to medication: Patient was prescribed clonidine 0.1 mg p.o. twice daily in the past. He is now taking 0.3 mg dose. I have reviewed vital signs from ED encounters over the last year. He has been normotensive. I have asked patient to stop taking clonidine. I do not feel that this is appropriate medication at this time. 2. Lightheadedness due to hypotension. 3. Patient has well-documented chronic pain in several locations, patient does not have acute medical condition otherwise Critical care attestation.: If time is entered above; I have spent that time in minutes in the direct care of this critically ill patient, excluding procedure time. ED Disposition Condition: Stable
--- NOTE | 2020-09-12 12:14 | XRay Report ---
CHEST 2 VIEWS INDICATION / CLINICAL INFORMATION: dizziness. COMPARISON: Chest x-ray on 06/30/2020 FINDINGS: SUPPORT DEVICES: None. HEART / MEDIASTINUM: No significant abnormality. LUNGS / PLEURA: Several chronic scarring left lung base. ADDITIONAL FINDINGS: Persistent elevation left hemidiaphragm. IMPRESSION: 1. No acute findings. Signer Name: Goldy Jaimes MD Signed: 09/12/2020 12:09 PM Workstation Name: [id number]
[2020-09-12] MEDS ORDERED: HYDROcodone/ACETAMINOPHEN 5-325 MG TAB PO ONE (12:18)
[2020-09-12 12:40] VITALS: BP 113/56
--- NOTE | 2020-09-12 18:16 | Electrocardiograph Report ---
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
== END 2020-09-12 13:51 | disposition home or self-care (01) ==
LOC: ED 10:14
DX: I95.89 Other hypotension (principal); T46.5X5A Adverse effect of other antihypertensive drugs, initial encounter; I10 Essential (primary) hypertension; I25.2 Old myocardial infarction; M19.91 Primary osteoarthritis, unspecified site; J44.9 Chronic obstructive pulmonary disease, unspecified; Z86.73 Personal history of transient ischemic attack (TIA), and cerebral infarction without residual deficits; Z90.49 Acquired absence of other specified parts of digestive tract; Z98.890 Other specified postprocedural states; Z79.899 Other long term (current) drug therapy; Z88.6 Allergy status to analgesic agent; Y92.89 Other specified places as the place of occurrence of the external cause
CPT/HCPCS: 71046; 93005

== ENCOUNTER 2020-09-14 11:23 | Emergency (ER) | payer MEDICARE ==
[2020-09-14 11:36] VITALS: BP 128/67
[2020-09-14] MEDS ORDERED: MORPHINE 4 MG/1 ML INJ IM ONE (14:04)
[2020-09-14] MEDS ORDERED: ONDANSETRON 4 MG ODT TAB PO ONE (14:04)
--- NOTE | 2020-09-14 14:38 | Emergency Department Report ---
<FROYLAN JULIAN - Last Filed: 09/14/20 14:57> ED Male HPI - General Chief complaint: Abdominal Pain Stated complaint: LEFT LOW HERNIA PAIN X 5 MONTHS Time Seen by Provider: 09/14/20 12:35 Source: patient Mode of arrival: Ambulatory Limitations: No Limitations - History of Present Illness Initial comments: 65-year-old male who is known well at this hospital with a past medical history of hypertension bipolar presents to the emergency room complaining of left inguinal hernia pain. Patient states that he tried to follow-up with general surgeon and they told him that they do not accept his insurance. Patient states that he has been taking Lortab for his pain. Patient reports that his last dose of [place] was last week when he came in to be evaluated. Patient states he is now living at [facility]. Patient states he takes clonidine for his high blood pressure. Patient endorsed that he had a heart attack 2 weeks ago while at [place]. Patient reports his primary care provider is Dr. Deven ibarra saw last week. MD Complaint: groin pain Onset/Timin -: week(s) Location: left testicle, left inguinal region Severity scale (0 -10): 10 Quality: aching, sharp Consistency: constant Improves with: medication Worsens with: none denies: discharge, mass, urinary retention, blood in urine, dysuria, fever, nausea/vomiting, incontinence - Related Data Home Medications Medication Instructions Recorded Confirmed Last Taken cloNIDine [Catapres] 0.1 mg PO BID 03/13/15 01/16/16 03/14/15 Dextroamphetamine/Amphetamine 10 mg PO DAILY 01/11/16 01/16/16 Unknown [Adderall 10 mg Tablet] Dextroamphetamine/Amphetamine 30 mg PO DAILY 01/11/16 01/16/16 Unknown [Adderall] Duloxetine HCl [Cymbalta] 60 mg PO DAILY 01/11/16 01/16/16 Unknown Gabapentin 300 mg PO TID 01/11/16 01/16/16 Unknown clonazePAM [KlonoPIN] 1 mg PO TID 01/11/16 01/16/16 Unknown Previous Rx's Medication Instructions Recorded Last Taken Type diphenhydrAMINE [Benadryl CAP] 25 mg PO QHS PRN #20 capsule 01/11/16 Unknown Rx Lactulose [Cephulac] 20 gm PO Q8H 30 Days oral.liqd 01/17/16 Unknown Rx Sulfamethoxazole/Trimethoprim 1 each PO BID #14 tablet 01/25/16 Unknown Rx [Bactrim DS TAB] traMADoL [Ultram 50 MG tab] 50 mg PO Q6HR PRN #30 tablet 05/07/16 Unknown Rx Albuterol Sulfate [Proventil Hfa] 6.7 gm IH QID #1 hfa.aer.ad 11/02/19 Unknown Rx Prednisone [predniSONE 10 mg 10 mg PO .TAPER #1 tab.ds.pk 11/02/19 Unknown Rx (6-Day Pack, 21 Tabs)] cephALEXin [Keflex] 500 mg PO TID 21 Days cap 11/02/19 Unknown Rx HYDROcodone/APAP 5-325 [[place] 1 each PO Q6HR PRN #10 tablet 12/20/19 Unknown Rx 5/325] HYDROcodone/APAP 10-325 [[place] 1 each PO Q6HR PRN #12 tablet 02/11/20 Unknown Rx 10-325 mg TAB] traMADoL [Ultram 50 MG tab] 50 mg PO Q6H #10 tablet 08/28/20 Unknown Rx Allergies Allergy/AdvReac Type Severity Reaction Status Date / Time ibuprofen [From Motrin] AdvReac IRRITATES Verified 08/28/20 16:50 REFLUX ED Review of Systems Comment: All other systems reviewed and negative ED Past Medical Hx - Past Medical History Previous Medical History?: Yes Hx Hypertension: Yes Hx CVA: Yes Hx Heart Attack/AMI: Yes (1981) Hx GERD: Yes Hx Liver Disease: Yes (HEPATITIS C-cured) Hx Arthritis: Yes Hx Psychiatric Treatment: Yes (Bipolar, Anxiety,MANIC DEPRESSION) Hx Asthma: Yes Hx COPD: Yes Additional medical history: DRUG / ALCOHOL ABUSE. L shoulder dislocation; Bones spurs; Dermatitis;. HIATAL HERNIA. HPYLORI. memory loss. Chronic pain - Surgical History Past Surgical History?: Yes Hx Cholecystectomy: Yes Additional Surgical History: L big toe removed; Hernia removed - Social History Smoking Status: Never Smoker Substance Use Type: None - Medications Home Medications: Home Medications Medication Instructions Recorded Confirmed Last Taken Type cloNIDine [Catapres] 0.1 mg PO BID 03/13/15 01/16/16 03/14/15 History Dextroamphetamine/Amphetamine 10 mg PO DAILY 01/11/16 01/16/16 Unknown History [Adderall 10 mg Tablet] Dextroamphetamine/Amphetamine 30 mg PO DAILY 01/11/16 01/16/16 Unknown History [Adderall] Duloxetine HCl [Cymbalta] 60 mg PO DAILY 01/11/16 01/16/16 Unknown History Gabapentin 300 mg PO TID 01/11/16 01/16/16 Unknown History clonazePAM [KlonoPIN] 1 mg PO TID 01/11/16 01/16/16 Unknown History diphenhydrAMINE [Benadryl CAP] 25 mg PO QHS PRN #20 capsule 01/11/16 01/16/16 Unknown Rx Lactulose [Cephulac] 20 gm PO Q8H 30 Days oral.liqd 01/17/16 Unknown Rx Sulfamethoxazole/Trimethoprim 1 each PO BID #14 tablet 01/25/16 Unknown Rx [Bactrim DS TAB] traMADoL [Ultram 50 MG tab] 50 mg PO Q6HR PRN #30 tablet 05/07/16 Unknown Rx Albuterol Sulfate [Proventil Hfa] 6.7 gm IH QID #1 hfa.aer.ad 11/02/19 Unknown Rx Prednisone [predniSONE 10 mg 10 mg PO .TAPER #1 tab.ds.pk 11/02/19 Unknown Rx (6-Day Pack, 21 Tabs)] cephALEXin [Keflex] 500 mg PO TID 21 Days cap 11/02/19 Unknown Rx HYDROcodone/APAP 5-325 [[place] 1 each PO Q6HR PRN #10 tablet 12/20/19 Unknown Rx 5/325] HYDROcodone/APAP 10-325 [[place] 1 each PO Q6HR PRN #12 tablet 02/11/20 Unknown Rx 10-325 mg TAB] traMADoL [Ultram 50 MG tab] 50 mg PO Q6H #10 tablet 08/28/20 Unknown Rx ED Physical Exam - General Limitations: No Limitations General appearance: alert, in no apparent distress - Head Head exam: Present: atraumatic, normocephalic - Eye Eye exam: Present: normal appearance - ENT ENT exam: Present: normal external ear exam - Neck Neck exam: Present: normal inspection, full ROM - Respiratory Respiratory exam: Absent: accessory muscle use - Cardiovascular Cardiovascular Exam: Present: regular rate - GI/Abdominal GI/Abdominal exam: Present: soft. Absent: distended, tenderness, guarding - Rectal Rectal exam: Present: deferred - exam: Present: testicular tenderness, scrotal swelling External exam: Present: other (Left inguinal hernia) - Extremities Exam Extremities exam: Present: normal inspection, full ROM - Back Exam Back exam: Present: normal inspection, full ROM - Neurological Exam Neurological exam: Present: alert, oriented X3, normal gait - Psychiatric Psychiatric exam: Present: normal affect, normal mood - Skin Skin exam: Present: warm, dry, intact, normal color. Absent: rash ED Medical Decision Making - Radiology Data Radiology results: report reviewed [facility] [address] [id number] Cat Scan Report Signed Patient: CHRISTIANO LIRIANO MR#: [id number] : 1955 Acct:[id number] Age/Sex: 65 / M ADM Date: 08/28/20 Loc: ED Attending Dr: Ordering Physician: ROMI PRUITT Date of Service: 08/28/20 Procedure(s): CT abdomen pelvis w con Accession Number(s): [id number] cc: ROMI PRUITT CT OF THE ABDOMEN AND PELVIS WITH INTRAVENOUS CONTRAST INDICATION / CLINICAL INFORMATION: Left inguinal hernia; strangulated/incarcerated. TECHNIQUE: The patient received 100 cc Omnipaque [address] scans at this location are performed using CT dose reduction for ALARA by means of automated exposure control. COMPARISON: None available. FINDINGS: ABDOMEN: There are small bilateral pleural effusions, larger on the left. There is also bibasilar compressive atelectasis, greater on the left. There is mild diffuse fatty infiltration of the liver without focal lesion. The gallbladder is surgically absent. The bile ducts, pancreas, spleen, adrenal glands and left kidney are normal. The right kidney is slightly small and scarred in appearance. The bowel is unremarkable. No adenopathy is present. There are moderate atherosclerotic calcifications involving the aorta without aneurysm. PELVIS: There is a moderate sized left inguinal hernia which contains a portion of the sigmoid colon. I see no evidence of bowel obstruction or wall thickening. No inflammatory change is present. The prostate gland is mildly enlarged. The distal ureters and urinary bladder are normal. A normal appendix is present and there is no evidence of diverticulitis. No acute osseous abnormality is seen. IMPRESSION: 1. Moderate sized left inguinal hernia containing a portion of the sigmoid colon. No acute complication. 2. Bibasilar pleuroparenchymal disease, greater on the left than the right, is likely secondary to combination of pleural effusions and compressive atelectasis. Signer Name: Tal Cruz MD Signed: 08/28/2020 8:43 PM Workstation Name: [id number] Transcribed By: RT Dictated By: Tal Cruz MD Electronically Authenticated By: Tal Cruz MD Signed Date/Time: 08/28/202042 DD/ 37 TD/TT: Print Cancel - Medical Decision Making 65-year-old male who is known well at this hospital with a past medical history of hypertension bipolar presents to the emergency room complaining of left inguinal hernia pain. Patient states that he tried to follow-up with general surgeon and they told him that they do not accept his insurance. Patient states that he has been taking Lortab for his pain. Patient reports that his last dose of [place] was last week when he came in to be evaluate d. Patient states he is now living at [facility]. Patient states he takes clonidine for his high blood pressure. Patient endorsed that he had a heart attack 2 weeks ago while at [place]. Patient reports his primary care provider is Dr. Deven ibarra saw last week. Patient seen here on 08/28/2020 for the same complaint. CT scan was ordered patient was referred to surgery and given [place] for pain. Patient was given morphine 4 mg IM and Zofran 4 mg p.o. Patient came back stating that we did not give him any morphine and that he would like Dilaudid 8 mg that he takes 3 times a day with morphine. Instructed patient that we will not be giving him that medication here. Discussed with patient that since he is now has the morphine I like to go and doing exam. Patient states that he wants to leave and will be putting his clothes on. Patient was given AMA paperwork. Case was discussed with ER attending Dr. Huerta. AMA with witness: the patient is alert and oriented 3. The patient exhibits decision-making capacity. The patient is free from distracting injury. The risks of leaving without a complete medical examination, and AGAINST MEDICAL ADVICE, were explained to the patient, and they included , disability, paralysis, permanent loss of quality of life. The patient verbalized understanding to these, and was able to articulate these risks in their own wor ds, and this conversation is witnessed by * Albert Castillo action finisher ED Disposition Clinical Impression: Left inguinal hernia Disposition: DC-07 LEFT AGAINST MED ADVICE Is pt being admited?: No Does the pt Need Aspirin: No Condition: Undetermined Referrals: PRIMARY CARE, [Primary Care Provider] - 3-5 Days Forms: AMA Form <ANSLEY HUERTA - Last Filed: 09/14/20 18:52> ED Review of Systems ROS: Stated complaint: LEFT LOW HERNIA PAIN X 5 MONTHS Other details as noted in HPI ED Course Vital Signs 09/14/20 09/14/20 11:34 14:42 Temperature 98.6 F Pulse Rate 73 Respiratory 18 16 Rate Blood Pressure 128/67 [Right] O2 Sat by Pulse 95 Oximetry Critical care attestation.: If time is entered above; I have spent that time in minutes in the direct care of this critically ill patient, excluding procedure time. ED Disposition Is pt being admited?: No Does the pt Need Aspirin: No
== END 2020-09-14 14:55 | disposition left against medical advice (07) ==
LOC: ED 11:23
DX: K40.90 Unilateral inguinal hernia, without obstruction or gangrene, not specified as recurrent (principal); I25.2 Old myocardial infarction; I10 Essential (primary) hypertension; K21.9 Gastro-esophageal reflux disease without esophagitis; F31.9 Bipolar disorder, unspecified; F41.9 Anxiety disorder, unspecified; M19.90 Unspecified osteoarthritis, unspecified site; J44.9 Chronic obstructive pulmonary disease, unspecified; Z90.49 Acquired absence of other specified parts of digestive tract; Z88.6 Allergy status to analgesic agent; Z79.899 Other long term (current) drug therapy; Z86.73 Personal history of transient ischemic attack (TIA), and cerebral infarction without residual deficits; Z98.890 Other specified postprocedural states
CPT/HCPCS: 96372; 99282; J2270; Q0162

== ENCOUNTER 2020-09-15 18:17 | Emergency (ER) | payer MEDICARE ==
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
[2020-09-15] MEDS: ACETAMINOPHEN 325 MG TAB PO ONE ×2 (23:02→23:08)
[2020-09-16 00:20] VITALS: BP 113/65
== END 2020-09-15 23:10 | disposition home or self-care (01) ==
LOC: ED 18:17
DX: K40.90 Unilateral inguinal hernia, without obstruction or gangrene, not specified as recurrent (principal); I10 Essential (primary) hypertension; I25.2 Old myocardial infarction; K21.9 Gastro-esophageal reflux disease without esophagitis; M19.90 Unspecified osteoarthritis, unspecified site; J44.9 Chronic obstructive pulmonary disease, unspecified; Z88.6 Allergy status to analgesic agent; Z79.899 Other long term (current) drug therapy; Z86.73 Personal history of transient ischemic attack (TIA), and cerebral infarction without residual deficits; Z90.49 Acquired absence of other specified parts of digestive tract; Z98.890 Other specified postprocedural states
CPT/HCPCS: 99282

== ENCOUNTER 2020-10-13 09:24 | Emergency (ER) | payer MEDICARE ==
[2020-10-13 10:33] VITALS: BP 125/70
== END 2020-10-13 19:55 | disposition home or self-care (01) ==
LOC: ED 09:24
DX: M54.5 Low back pain (principal); H92.09 Otalgia, unspecified ear; Z53.21 Procedure and treatment not carried out due to patient leaving prior to being seen by health care provider

== ENCOUNTER 2020-12-22 10:03 | Emergency (ER) | payer MEDICARE ==
[2020-12-22] MEDS ORDERED: HYDROcodone/ACETAMINOPHEN 5-325 MG TAB PO ONE (11:40)
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
--- NOTE | 2020-12-22 12:16 | XRay Report ---
LUMBAR SPINE 3 VIEWS INDICATION / CLINICAL INFORMATION: Pain after fall. COMPARISON: None available. FINDINGS: VERTEBRAE: Acute mildly displaced fracture sacrococcygeal junction No significant malalignment. DISC SPACES:No significant abnormality. FACET JOINTS:Mild facet degenerative disease L5-S1 ADDITIONAL FINDINGS: None. IMPRESSION: 1. No significant abnormality. Signer Name: Oseas Minor MD Signed: 12/22/2020 12:11 PM Workstation Name: [id number]
[2020-12-22 12:39] VITALS: BP 159/72
[2020-12-22 13:26] LABS: Bilirubin,Urine NEG (Negative); Color,Urine Yellow (Yellow)
[2020-12-22 13:27] LABS: Blood,Urine NEG (Negative); Protein,Urine <15 mg/dL mg/dL (Negative)
== END 2020-12-22 14:24 | disposition home or self-care (01) ==
LOC: ED 10:03
DX: S39.012A Strain of muscle, fascia and tendon of lower back, initial encounter (principal); N39.0 Urinary tract infection, site not specified; I10 Essential (primary) hypertension; Z86.73 Personal history of transient ischemic attack (TIA), and cerebral infarction without residual deficits; K21.9 Gastro-esophageal reflux disease without esophagitis; M19.90 Unspecified osteoarthritis, unspecified site; K76.9 Liver disease, unspecified; F32.9 Major depressive disorder, single episode, unspecified; F41.9 Anxiety disorder, unspecified; G89.29 Other chronic pain; F10.10 Alcohol abuse, uncomplicated; Z98.890 Other specified postprocedural states; X58.XXXA Exposure to other specified factors, initial encounter; Y93.89 Activity, other specified; Y92.89 Other specified places as the place of occurrence of the external cause; Y99.8 Other external cause status
CPT/HCPCS: 72100; 81001; 99284

== ENCOUNTER 2021-08-21 11:57 | Emergency (ER) | payer MEDICARE ==
[2021-08-21 13:09] VITALS: BP 121/71
[2021-08-21] MEDS ORDERED: ONDANSETRON 4 MG/2 ML INJ IV ONE (21:30)
[2021-08-21] MEDS ORDERED: MORPHINE 4 MG/1 ML INJ IV ONE (21:30)
--- NOTE | 2021-08-21 21:54 | XRay Report ---
CHEST 1 VIEW 08/21/2021 9:32 PM INDICATION / CLINICAL INFORMATION: Chest pain. COMPARISON: 09/12/2020 FINDINGS: SUPPORT DEVICES: None. HEART / MEDIASTINUM: No significant abnormality. LUNGS / PLEURA: No significant pulmonary or pleural abnormality. No pneumothorax. ADDITIONAL FINDINGS: There is elevation of left hemidiaphragm. IMPRESSION: 1. No acute findings. Signer Name: Jayjay Boogie MD Signed: 08/21/2021 9:50 PM Workstation Name: [id number]
[2021-08-21 21:55] LABS: Bilirubin,Urine NEG (Negative); Blood,Urine NEG (Negative); Color,Urine Amber (Yellow); Mucus,Urine 3+ /HPF; Protein,Urine <15 mg/dL mg/dL (Negative)
[2021-08-21 22:06] LABS: Basophils # (Auto) 0.1 K/mm3 (0.0-0.1); Basophils % (Auto) 1.6 % (0.0-1.8); Eosinophils # (Auto) 0.3 K/mm3 (0.0-0.4); Eosinophils % (Auto) 5.1 % (0.0-4.3); Lymphocytes # (Auto) 1.4 K/mm3 (1.2-5.4); Lymphocytes % (Auto) 21.3 % (13.4-35.0); Mean Corpuscular HGB Conc 34 % (32-34); Mean Corpuscular Volume 94 fl (84-94); Monocytes # (Auto) 0.5 K/mm3 (0.0-0.8); Monocytes % (Auto) 7.2 % (0.0-7.3); Platelet Count 256 K/mm3 (140-440); Red Blood Count 4.67 M/mm3 (3.65-5.03); Red Cell Distribution Width 13.1 % (13.2-15.2)
[2021-08-21 22:28] LABS: Alanine Aminotransferase 28 units/L (7-56); Albumin 4.1 g/dL (3.9-5); Blood Urea Nitrogen 11 mg/dL (9-20); Calcium 9.2 mg/dL (8.4-10.2); Hemolysis Index 6
[2021-08-21 22:35] LABS: BUN/Creatinine Ratio 18
--- NOTE | 2021-08-22 02:23 | Emergency Department Report ---
ED General Adult HPI - General Chief complaint: Medical Clearance Stated complaint: GOUT FLARE UP Source: patient Mode of arrival: Ambulatory Limitations: No Limitations - History of Present Illness Initial comments: Patient is a 66-year-old male with a history of hypertension, chronic alcohol abuse, CVA, coronary artery disease s/p ND, A. 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 P gopi states that overall her chronic medical conditions, he stopped taking all prescribed medications because he feared that these medications were affecting his liver enzymes chronically. Patient denies fall, traumatic injury, dizziness, syncope, chest pain or shortness of breath, nausea and vomiting, diarrhea, abdominal pain, cough, fever, chills, numbness and tingling or weakness of lower extremities bilaterally. MD Complaint: Bilateral lower extremity pain and swelling -: Gradual, week(s) (2) Location: lower extremity (Bilateral lower extremity pain and swelling) Severity scale (0 -10): 8 Quality: aching, sharp Consistency: constant Improves with: none Worsens with: movement Associated Symptoms: denies other symptoms. denies: confusion, chest pain, cough, diaphoresis, fever/chills, headaches, loss of appetite, malaise, nausea/vomiting, rash, shortness of breath, syncope, weakness Treatments Prior to Arrival: none - Related Data Home Medications Medication Instructions Recorded Confirmed Last Taken cloNIDine [Catapres] 0.1 mg PO BID 03/13/15 01/16/16 03/14/15 Dextroamphetamine/Amphetamine 10 mg PO DAILY 01/11/16 01/16/16 Unknown [Adderall 10 mg Tablet] Dextroamphetamine/Amphetamine 30 mg PO DAILY 01/11/16 01/16/16 Unknown [Adderall] Duloxetine HCl [Cymbalta] 60 mg PO DAILY 01/11/16 01/16/16 Unknown Gabapentin 300 mg PO TID 01/11/16 01/16/16 Unknown clonazePAM [KlonoPIN] 1 mg PO TID 01/11/16 01/16/16 Unknown Previous Rx's Medication Instructions Recorded Last Taken Type diphenhydrAMINE [Benadryl CAP] 25 mg PO QHS PRN #20 capsule 01/11/16 Unknown Rx Lactulose [Cephulac] 20 gm PO Q8H 30 Days oral.liqd 01/17/16 Unknown Rx Sulfamethoxazole/Trimethoprim 1 each PO BID #14 tablet 01/25/16 Unknown Rx [Bactrim DS TAB] traMADoL [Ultram 50 MG tab] 50 mg PO Q6HR PRN #30 tablet 05/07/16 Unknown Rx Albuterol Sulfate [Proventil Hfa] 6.7 gm IH QID #1 hfa.aer.ad 11/02/19 Unknown Rx Prednisone [predniSONE 10 mg 10 mg PO .TAPER #1 tab.ds.pk 11/02/19 Unknown Rx (6-Day Pack, 21 Tabs)] cephALEXin [Keflex] 500 mg PO TID 21 Days cap 11/02/19 Unknown Rx HYDROcodone/APAP 5-325 [[place] 1 each PO Q6HR PRN #10 tablet 12/20/19 Unknown Rx 5/325] HYDROcodone/APAP 10-325 [[place] 1 each PO Q6HR PRN #12 tablet 02/11/20 Unknown Rx 10-325 mg TAB] traMADoL [Ultram 50 MG tab] 50 mg PO Q6H #10 tablet 08/28/20 Unknown Rx levoFLOXacin [Levaquin TAB] 500 mg PO QDAY #10 tablet 12/22/20 Unknown Rx traMADoL [Ultram] 50 mg PO Q6HR PRN #10 tablet 12/22/20 Unknown Rx Allergies Allergy/AdvReac Type Severity Reaction Status Date / Time ibuprofen [From Motrin] AdvReac IRRITATES Verified 12/22/20 10:08 REFLUX ED Review of Systems ROS: Stated complaint: GOUT FLARE UP Other details as noted in HPI Constitutional: denies: chills, fever Eyes: denies: eye pain, eye discharge, vision change ENT: denies: ear pain, throat pain Respiratory: denies: cough, shortness of breath, wheezing Cardiovascular: denies: chest pain, palpitations Endocrine: no symptoms reported Gastrointestinal: denies: abdominal pain, nausea, diarrhea Genitourinary: denies: urgency, dysuria Musculoskeletal: joint swelling (Bilateral lower extremity pain and swelling), arthralgia (Bilateral lower extremity pain and swelling). denies: back pain Skin: denies: rash, lesions Neurological: denies: headache, weakness, paresthesias Psychiatric: denies: anxiety, depression Hematological/Lymphatic: denies: easy bleeding, easy bruising ED Past Medical Hx - Past Medical History Hx Hypertension: Yes Hx CVA: Yes Hx Heart Attack/AMI: Yes (1981) Hx GERD: Yes Hx Liver Disease: Yes (HEPATITIS C-cured) Hx Arthritis: Yes Hx Psychiatric Treatment: Yes (Bipolar, Anxiety,MANIC DEPRESSION) Hx Asthma: Yes Hx COPD: Yes Hx Dementia: Yes Additional medical history: DRUG / ALCOHOL ABUSE. L shoulder dislocation; Bones spurs; Dermatitis;. HIATAL HERNIA. HPYLORI. memory loss. Chronic pain - Surgical History Hx Cholecystectomy: Yes Additional Surgical History: Herniorrhaphy - Social History Smoking Status: Never Smoker Substance Use Type: None - Medications Home Medications: Home Medications Medication Instructions Recorded Confirmed Last Taken Type cloNIDine [Catapres] 0.1 mg PO BID 03/13/15 01/16/16 03/14/15 History Dextroamphetamine/Amphetamine 10 mg PO DAILY 01/11/16 01/16/16 Unknown History [Adderall 10 mg Tablet] Dextroamphetamine/Amphetamine 30 mg PO DAILY 01/11/16 01/16/16 Unknown History [Adderall] Duloxetine HCl [Cymbalta] 60 mg PO DAILY 01/11/16 01/16/16 Unknown History Gabapentin 300 mg PO TID 01/11/16 01/16/16 Unknown History clonazePAM [KlonoPIN] 1 mg PO TID 01/11/16 01/16/16 Unknown History diphenhydrAMINE [Benadryl CAP] 25 mg PO QHS PRN #20 capsule 01/11/16 01/16/16 Unknown Rx Lactulose [Cephulac] 20 gm PO Q8H 30 Days oral.liqd 01/17/16 Unknown Rx Sulfamethoxazole/Trimethoprim 1 each PO BID #14 tablet 01/25/16 Unknown Rx [Bactrim DS TAB] traMADoL [Ultram 50 MG tab] 50 mg PO Q6HR PRN #30 tablet 05/07/16 Unknown Rx Albuterol Sulfate [Proventil Hfa] 6.7 gm IH QID #1 hfa.aer.ad 11/02/19 Unknown Rx Prednisone [predniSONE 10 mg 10 mg PO .TAPER #1 tab.ds.pk 11/02/19 Unknown Rx (6-Day Pack, 21 Tabs)] cephALEXin [Keflex] 500 mg PO TID 21 Days cap 11/02/19 Unknown Rx HYDROcodone/APAP 5-325 [[place] 1 each PO Q6HR PRN #10 tablet 12/20/19 Unknown Rx 5/325] HYDROcodone/APAP 10-325 [[place] 1 each PO Q6HR PRN #12 tablet 02/11/20 Unknown Rx 10-325 mg TAB] traMADoL [Ultram 50 MG tab] 50 mg PO Q6H #10 tablet 08/28/20 Unknown Rx levoFLOXacin [Levaquin TAB] 500 mg PO QDAY #10 tablet 12/22/20 Unknown Rx traMADoL [Ultram] 50 mg PO Q6HR PRN #10 tablet 12/22/20 Unknown Rx ED Physical Exam - General Limitations: No Limitations General appearance: alert, in no apparent distress - Head Head exam: Present: atraumatic, normocephalic, normal inspection - Eye Eye exam: Present: normal appearance, PERRL, EOMI Pupils: Present: normal accommodation - ENT ENT exam: Present: normal exam, normal orophraynx, mucous membranes moist, TM's normal bilaterally, normal external ear exam - Neck Neck exam: Present: normal inspection, full ROM. Absent: tenderness - Respiratory Respiratory exam: Present: normal lung sounds bilaterally. Absent: respiratory distress, wheezes, rales, stridor, chest wall tenderness, accessory muscle use, prolonged expiratory - Cardiovascular Cardiovascular Exam: Present: regular rate, normal rhythm, normal heart sounds. Absent: systolic murmur, diastolic murmur, rubs, gallop - GI/Abdominal GI/Abdominal exam: Present: soft, normal bowel sounds. Absent: tenderness, guarding, rebound, hyperactive bowel sounds, hypoactive bowel sounds, organomegaly - Extremities Exam Extremities exam: Present: normal inspection, full ROM, tenderness (Palpable bilateral diffuse lower extremity tenderness, mild swelling), normal capillary refill, pedal edema (1+ bilateral pedal edema), joint swelling, calf tenderness (Bilateral) - Back Exam Back exam: Present: normal inspection, full ROM. Absent: tenderness, CVA tenderness (R), CVA tenderness (L), muscle spasm, paraspinal tenderness, vertebral tenderness - Neurological Exam Neurological exam: Present: alert, oriented X3, CN II-XII intact, normal gait, reflexes normal - Psychiatric Psychiatric exam: Present: normal affect, normal mood - Skin Skin exam: Present: warm, dry, intact, normal color. Absent: rash ED Course Vital Signs 08/21/21 08/21/21 13:04 22:27 Temperature 97.5 F L Pulse Rate 69 Respiratory 16 16 Rate Blood Pressure 121/71 O2 Sat by Pulse 90 Oximetry ED Medical Decision Making - Lab Data Result diagrams: 08/21/21 21:41 08/21/21 21:41 - Radiology Data Radiology results: report reviewed, image reviewed [facility] [address] [place] [address] XRay Report Signed Patient: CHRISTIANO LIRIANO MR#: [id number] : 1955 Acct:[id number] Age/Sex: 66 / M ADM Date: 08/21/21 Loc: ED Attending Dr: Ordering Physician: ROMI HURTADO Date of Service: 08/21/21 Procedure(s): XR chest 1V ap Accession Number(s): [id number] cc: ROMI HURTADO Fluoro Time In Minutes: CHEST 1 VIEW 08/21/2021 9:32 PM INDICATION / CLINICAL INFORMATION: Chest pain. COMPARISON: 09/12/2020 FINDINGS: SUPPORT DEVICES: None. HEART / MEDIASTINUM: No significant abnormality. LUNGS / PLEURA: No significant pulmonary or pleural abnormality. No pneumothorax. ADDITIONAL FINDINGS: There is elevation of left hemidiaphragm. IMPRESSION: 1. No acute findings. Signer Name: Jayjay Boogie MD Signed: 08/21/2021 9:50 PM Workstation Name: [id number] Transcribed By: SS Dictated By: Jayjay Boogie MD Electronically Authenticated By: Jayjay Boogie MD Signed Date/Time: 08/21/212149 DD/ 48 TD/TT: [facility] [address] [place] [address] Vascular Lab Report Signed Patient: CHRISTIANO LIRIANO MR#: [id number] : 1955 Acct:[id number] Age/Sex: 66 / M ADM Date: 08/21/21 Loc: ED Attending Dr: Ordering Physician: ROMI HURTADO Date of Service: 08/22/21 Procedure(s): VL venous duplex LE BILAT Accession Number(s): [id number] cc: ROMI HURTADO DUPLEX DOPPLER LOWER EXTREMITY VEINS, BILATERAL INDICATION / CLINICAL INFORMATION: PAIN, SWELLING. TECHNIQUE: Duplex doppler imaging was performed through the veins of both lower ext remities using venous compression and other maneuvers. COMPARISON: None available. FINDINGS: RIGHT COMMON FEMORAL VEIN: Negative. RIGHT FEMORAL VEIN: Negative. RIGHT POPLITEAL VEIN: Negative. RIGHT CALF VEINS: Negative. LEFT COMMON FEMORAL VEIN: Negative. LEFT FEMORAL VEIN: Negative. LEFT POPLITEAL VEIN: Negative. LEFT CALF VEINS: Negative. ADDITIONAL FINDINGS: None. IMPRESSION: 1. No sonographic evidence for DVT in either lower extremity. Signer Name: Oseas Minor MD Signed: 08/22/2021 4:22 AM Workstation Name: [id number] Transcribed By: TL Dictated By: Oseas Minor MD Electronically Authenticated By: Oseas Minor MD Signed Date/Time: 08/22/21421 DD/ 1 TD/TT: - Medical Decision Making This is a 66-year-old male with a history of hypertension, chronic alcohol abuse, CVA, coronary artery disease s/p ND, A. 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 Patient states that overall her chronic medical conditions, he stopped taking all prescribed medications because he feared that these medications were affecting his liver enzymes chronically. In the ED, patient is alert and oriented x3 and is not in any distress. Lab test results were reviewed and are all nonactionable. Patient was treated for pain in the ED. Chest x-ray showed no acute cardiopulmonary abnormalities or pneumonitis. Bilateral lower extremity Doppler ultrasound showed no sonographic evidence of DVT. Patient symptoms are likely due to his baseline chronic pain due to chronic osteoarthritis. On reevaluation, patient pain is well controlled medication. Patient will discharge home and advised to follow-up with his primary care physician in 7 to 10 days for reevaluation. Patient advised return to the ED immediately if symptoms get worse. - Differential Diagnosis chronic osteoarthritis; chronic pain Critical care attestation.: If time is entered above; I have spent that time in minutes in the direct care of this critically ill patient, excluding procedure time. ED Disposition Clinical Impression: Chronic pain of lower extremity, bilateral, Chronic osteoarthritis Disposition: 01 HOME / SELF CARE / HOMELESS Is pt being admited?: No Does the pt Need Aspirin: No Condition: Stable Instructions: Arthritis, [id number], Osteoarthritis, Chronic Pain, Adult Additional Instructions: All lab test results were reviewed and are all nonactionable. Chest x-ray showed no acute cardiopulmonary abnormalities or pneumonitis. Bilateral lower extremity Doppler ultrasound showed no sonographic evidence of DVT. Therefore take your regular pain medications at home and follow-up with your primary care physician as needed. Return to the ED immediately if symptoms get worse Referrals: [facility] [Provider Group] - 3-5 Days Time of Disposition: 04:27 Print Language: GEORGIAN
--- NOTE | 2021-08-22 04:26 | Vascular Lab Report ---
DUPLEX DOPPLER LOWER EXTREMITY VEINS, BILATERAL INDICATION / CLINICAL INFORMATION: PAIN, SWELLING. TECHNIQUE: Duplex doppler imaging was performed through the veins of both lower extremities using venous dayna joon and other maneuvers. COMPARISON: None available. FINDINGS: RIGHT COMMON FEMORAL VEIN: Negative. RIGHT FEMORAL VEIN: Negative. RIGHT POPLITEAL VEIN: Negative. RIGHT CALF VEINS: Negative. LEFT COMMON FEMORAL VEIN: Negative. LEFT FEMORAL VEIN: Negative. LEFT POPLITEAL VEIN: Negative. LEFT CALF VEINS: Negative. ADDITIONAL FINDINGS: None. IMPRESSION: 1. No sonographic evidence for DVT in either lower extremity. Signer Name: Oseas Minor MD Signed: 08/22/2021 4:22 AM Workstation Name: [id number]
--- NOTE | 2021-08-25 12:14 | Electrocardiograph Report ---
[facility] Test Date: 2021-08-21 Test Time: 23:35:31 Pat Name: CHRISTIANO LIRIANO Department: Room: Gender: M Manager Developmental: [id number] : 1955 Requested By: GISSELL YARBROUGH Order Number: [id number] Reading MD: Pretty Pisano Measurements Intervals [place] Rate: 74 P: 72 [place]: 172 QRS: 51 QRSD: 99 T: 16 QT: 395 QTc: 438 Interpretive Statements Sinus rhythm Low voltage, precordial leads Compared to ECG 09/12/2020 10:37:42 No significant change Electronically Signed On 08-25-2021 12:13:47 EDT by Pretty Pisano
== END 2021-08-22 06:38 | disposition home or self-care (01) ==
LOC: ED 11:57
DX: G89.29 Other chronic pain (principal); M19.90 Unspecified osteoarthritis, unspecified site; M79.605 Pain in left leg; M79.604 Pain in right leg; Z88.6 Allergy status to analgesic agent; Z90.49 Acquired absence of other specified parts of digestive tract; J45.909 Unspecified asthma, uncomplicated
CPT/HCPCS: 36415; 71045; 80053; 81001; 83880; 84484; 84550; 85025; 93005; 93970; 96374; 96375; 99284; J2270; J2405

== ENCOUNTER 2021-10-08 11:18 | Emergency (ER) | payer MEDICARE ==
[2021-10-08 11:30] VITALS: BP 126/83
== END 2021-10-08 17:20 | disposition left against medical advice (07) ==
LOC: ED 11:18
DX: R10.9 Unspecified abdominal pain (principal); Z53.21 Procedure and treatment not carried out due to patient leaving prior to being seen by health care provider